=== PATIENT | female | born 1945 | race Caucasian/White ===

== ENCOUNTER 2017-03-09 17:29 | Emergency (ER) | payer MEDICARE ==
[2017-03-09 17:33] VITALS: BP 183/87; PULSE 70; RESP 20; TEMP 97.5
[2017-03-09] MEDS ORDERED: DIPH,PERTUS(ACELL)TETVAC-LF 0.5 ML VIAL IM ONE (18:12)
--- NOTE | 2017-03-09 18:54 | ED ---
Wound/Laceration HPI - General Chief Complaint: Wound/Laceration Stated Complaint: Laceration Time Seen by Provider: 03/09/17 17:58 Source: patient, RN notes reviewed Mode of arrival: wheelchair Limitations: no limitations - History of Present Illness Initial Comments: 71-year-old male presents emergency Department chief complaint of left forearm laceration. Patient states that she hit it on a cabinet today. Patient does not recall her last tetanus. Patient denies any pain she's noticed that it was opened more than normal so she thought that she should be evaluated.Patient denies any recent fever, chills, shortness of breath, chest pain, back pain, abdominal pain, nausea vomiting, numbness or tingling, dysuria or hematuria, constipation or diarrhea, headaches or visual changes, or any other current symptoms. - Related Data Allergies Allergy/AdvReac Type Severity Reaction Status Date / Time codeine Allergy Unknown Verified 03/09/17 17:33 Penicillins Allergy Unknown Verified 03/09/17 17:33 Review of Systems ROS Statement: Those systems with pertinent positive or pertinent negative responses have been documented in the HPI. ROS Other: All systems not noted in ROS Statement are negative. Past Medical History Past Medical History: Chest Pain / Angina, Hypertension History of Any Multi-Drug Resistant Organisms: None Reported Past Surgical History: Heart Catheterization Past Psychological History: No Psychological Hx Reported Smoking Status: Never smoker Past Alcohol Use History: None Reported Past Drug Use History: None Reported General Exam - General Exam Comments Initial Comments: General: The patient is awake and alert, in no distress, and does not appear acutely ill. Neck: The neck is supple, there is no tenderness. Cardiovascular: There is a regular rate and rhythm. No murmur, rub or gallop is appreciated. Respiratory: Lungs are clear to auscultation, respirations are non-labored, breath sounds are equal. No wheezes, stridor, rales, or rhonchi. Musculoskeletal: Sensation to have a 2+ pulses. Left upper joint. Full range of motion of the left elbow and the left wrist. Patient does appear to have 3 cm laceration across the left forearm. Patient has no bony tenderness. Neurological: CN II-XII intact, There are no obvious motor or sensory deficits. Coordination appears grossly intact. Speech is normal. Skin: Skin is warm and dry and no rashes or lesions are noted. Psychiatric: Normal mood and affect. Limitations: no limitations Course Vital Signs 03/09/17 17:31 Temperature 97.5 F L Pulse Rate 70 Respiratory 20 Rate Blood Pressure 183/87 O2 Sat by Pulse 98 Oximetry Procedures - Procedures Initial comment: The skin was anesthetized with 1% lidocaine. The laceration was then cleansed with Betadine and irrigated with normal saline. The wound was inspected, and there was no evidence of injury to deep structures. No foreign body was noted in the wound. A total of 5 skin sutures were placed utilizing 5-0 nylon to a 3 cm left forearm laceration. Medical Decision Making - Medical Decision Making 71-year-old female presents to emergency room chief complaint of left forearm laceration. Patient was offered an x-ray which she refused. This and patient went suture care. We discussed care follow-up and return parameters. We discussed all the patient's family's questions. He stated they understood the plan. This and will be discharged home. Disposition Clinical Impression: Laceration of left forearm Disposition: HOME SELF-CARE Condition: Stable Instructions: Laceration (ED) Additional Instructions: Please use medication as discussed. Please follow up with family doctor if symptoms have not improved over the next two days. Please return to the emergency room if your symptoms increase or worsen or for any other concerns. Please return to the emergency room in 8-10 days to have sutures removed. Please leave wound covered for the first 24-48 hours and then leave open to air after that time. Please use clean soap and water to clean the suture area to prevent scabbing over the top of your sutures. Please watch for any signs of infection which may include but not limited to increased pain, swelling, redness , fever or chills. Please return to the emergency room if any signs of infection do occur. Please return to the emergency room for any other concerns or complications. Referrals: None,Stated [Primary Care Provider] - 1-2 days Simon Palm MD [STAFF PHYSICIAN] - 1-2 days Time of Disposition: 18:54
== END 2017-03-09 19:16 | disposition home or self-care (01) ==
LOC: EC 17:29
DX: S51.812A Laceration without foreign body of left forearm, initial encounter (principal); W20.8XXA Other cause of strike by thrown, projected or falling object, initial encounter; Y92.009 Unspecified place in unspecified non-institutional (private) residence as the place of occurrence of the external cause; Z23 Encounter for immunization; Z88.0 Allergy status to penicillin; Z88.5 Allergy status to narcotic agent
CPT/HCPCS: 12002; 90471; 90715; 99282

== ENCOUNTER 2017-05-18 17:38 | Emergency (ER) | payer MEDICARE ==
[2017-05-18 18:04] VITALS: BP 141/66; PULSE 63; RESP 18; TEMP 98.1
--- NOTE | 2017-05-18 18:26 | XR ---
EXAMINATION TYPE: XR ankle complete RT DATE OF EXAM: 05/18/2017 CLINICAL HISTORY: Right ankle pain and swelling after twisting injury today. TECHNIQUE: Frontal, lateral and oblique images of the right ankle are obtained. COMPARISON: None. FINDINGS: There is mild diffuse subcutaneous edema with slightly more prominent focal swelling over t he lateral malleolus. There are tiny ossific fragments from lateral and medial malleoli consistent wi th age-indeterminate avulsion fractures. Ankle mortise symmetry is preserved. IMPRESSION: There are age indeterminant avulsion type fractures from the medial and lateral malleolu s .
--- NOTE | 2017-05-18 18:47 | ED ---
General Adult HPI - General Chief complaint: Extremity Injury, Lower Stated complaint: fall Time Seen by Provider: 05/18/17 18:30 Source: patient, RN notes reviewed Mode of arrival: ambulatory Limitations: no limitations - History of Present Illness Initial comments: Patient 71-year-old female who presents emergency room today with a chief complaint of injury to the right ankle that occurred earlier today. She does admit that she rolled her right ankle earlier this morning. Does admit that she 's had increased pain swelling to the area. Patient denies any other complaints or associated symptoms. Patient denies any recent fever, chills, shortness of breath, chest pain, back pain, abdominal pain, nausea or vomiting, numbness or tingling, dysuria or hematuria, constipation or diarrhea, headaches or visual changes, or any other complaints. - Related Data Home Medications Medication Instructions Recorded Confirmed No Known Home Medications [No 05/18/17 05/18/17 Known Home Medications] Allergies Allergy/AdvReac Type Severity Reaction Status Date / Time codeine Allergy Unknown Verified 05/18/17 18:38 Penicillins Allergy Unknown Verified 05/18/17 18:38 Review of Systems ROS Statement: Those systems with pertinent positive or pertinent negative responses have been documented in the HPI. ROS Other: All systems not noted in ROS Statement are negative. Past Medical History Past Medical History: Chest Pain / Angina, Hyperlipidemia, Hypertension History of Any Multi-Drug Resistant Organisms: None Reported Past Surgical History: Cholecystectomy, Heart Catheterization, Hysterectomy Additional Past Surgical History / Comment(s): bladder suspension Past Psychological History: No Psychological Hx Reported Smoking Status: Never smoker Past Alcohol Use History: None Reported Past Drug Use History: None Reported General Exam - General Exam Comments Initial Comments: General: The patient is awake and alert, in no distress, and does not appear acutely ill. Neck: The neck is supple, there is no tenderness or JVD. Cardiovascular: There is a regular rate and rhythm. No murmur, rub or gallop is appreciated. Respiratory: Lungs are clear to auscultation, respirations are non-labored, breath sounds are equal. No wheezes, stridor, rales, or rhonchi. Musculoskeletal: She does have moderate swelling to the right ankle. Shows good range of motion both plantar and dorsiflexion. Sensation is intact pulses equal bilaterally 2+. Mild tenderness over the lateral malleolus with mild tenderness over the medial malleolus. No tenderness down to the right foot. Neurological: A&O x 3. CN II-XII intact, There are no obvious motor or sensory deficits. Coordination appears grossly intact. Speech is normal. Skin: Skin is warm and dry and no rashes or lesions are noted. Psychiatric: Normal mood and affect. Limitations: no limitations Course Vital Signs 05/18/17 18:02 Temperature 98.1 F Pulse Rate 63 Respiratory 18 Rate Blood Pressure 141/66 O2 Sat by Pulse 97 Oximetry Medical Decision Making - Medical Decision Making Case discussed in detail with attending physician Dr. Brownlee. X-ray show 2 indeterminate age fractures of both the lateral and medial sides. Patient been placed in Jack wrap as it is her right foot has no one to pick her up to drive. She's been advised follow-up with orthopedics. She is advised to return to emergency room if any symptoms increase or worsen or for any other concerns. Disposition Clinical Impression: Ankle sprain Disposition: HOME SELF-CARE Condition: Good Instructions: Ankle Sprain (ED) Additional Instructions: Please use Jack wrap on up and moving around. Please do not sleep. Please elevate affected area at least 4 times daily for 20 minutes at a time. Please follow-up with orthopedic doctor over the next 2 days. Please return to emergency room for any other concerns. Referrals: None,Stated [Primary Care Provider] - 1-2 days Tunde Schmidt MD [Medical Doctor] - 1-2 days Time of Disposition: 18:46
== END 2017-05-18 19:00 | disposition home or self-care (01) ==
LOC: EC 17:38
DX: S93.401A Sprain of unspecified ligament of right ankle, initial encounter (principal); Z88.0 Allergy status to penicillin; Z88.5 Allergy status to narcotic agent; X50.1XXA Overexertion from prolonged static or awkward postures, initial encounter
CPT/HCPCS: 99283

== ENCOUNTER 2019-09-06 16:05 | Inpatient (IN) | payer MEDICARE, OTHER ==
[2019-09-06] MEDS ORDERED: SODIUM CHLORIDE 0.9% 1,000 ML IV STA (16:34)
[2019-09-06] MEDS ORDERED: METOCLOPRAMIDE 5 MG/ML 2 ML VIAL IVP STA (16:34)
[2019-09-06] MEDS ORDERED: MORPHINE SULFATE 4 MG/ML SYRINGE IV STA (16:35)
--- NOTE | 2019-09-06 16:47 | ED ---
General Adult HPI - General Chief complaint: Headache Stated complaint: Headache Time Seen by Provider: 09/06/19 16:18 Source: patient, RN notes reviewed Mode of arrival: ambulatory Limitations: no limitations - History of Present Illness Initial comments: Patient is a pleasant 73-year-old female presenting to the emergency Department with complaints of headache. Onset of symptoms was a couple of hours ago. Headache did progress over a few minutes and became severe. Headache is frontal. No history of chronic headaches. No photophobia. Patient has some mild nausea. Patient also complains of some Bosher in her chest. No radiation. Patient does feel slightly short of breath. Patient states she may have been a little bit sweaty. Patient states discomfort in the head is significantly worse than the chest discomfort. No isolated area of weakness. No speech or memory problems. - Related Data Home Medications Medication Instructions Recorded Confirmed No Known Home Medications 05/18/17 09/06/19 Allergies Allergy/AdvReac Type Severity Reaction Status Date / Time codeine Allergy Unknown Verified 09/06/19 16:50 Penicillins Allergy Unknown Verified 09/06/19 16:50 Review of Systems ROS Statement: Those systems with pertinent positive or pertinent negative responses have been documented in the HPI. ROS Other: All systems not noted in ROS Statement are negative. Constitutional: Denies: fever Eyes: Denies: eye pain ENT: Denies: ear pain Respiratory: Reports: as per HPI Cardiovascular: Reports: as per HPI, chest pain Endocrine: Denies: fatigue Gastrointestinal: Reports: nausea. Denies: abdominal pain, vomiting Genitourinary: Denies: dysuria Musculoskeletal: Denies: back pain Skin: Denies: rash Neurological: Reports: headache. Denies: weakness, numbness, paresthesias, confusion Past Medical History Past Medical History: Chest Pain / Angina, Hyperlipidemia, Hypertension History of Any Multi-Drug Resistant Organisms: None Reported Past Surgical History: Cholecystectomy, Heart Catheterization, Hysterectomy Additional Past Surgical History / Comment(s): bladder suspension Past Psychological History: No Psychological Hx Reported Smoking Status: Never smoker Past Alcohol Use History: None Reported Past Drug Use History: None Reported General Exam Limitations: no limitations General appearance: alert, in no apparent distress Head exam: Present: normocephalic, other Eye exam: Present: normal appearance, PERRL, EOMI ENT exam: Present: normal oropharynx Neck exam: Present: normal inspection. Absent: tenderness, meningismus Respiratory exam: Present: normal lung sounds bilaterally Cardiovascular Exam: Present: regular rate, normal rhythm GI/Abdominal exam: Present: soft. Absent: tenderness Extremities exam: Present: normal inspection Neurological exam: Present: alert, oriented X3, CN II-XII intact. Absent: motor sensory deficit Expanded Neurological exam: Present: protecting the airway Patient oriented to: Present: person, place, time Speech: Present: fluid speech Cranial nerves: EOM's Intact: Normal, Facial Sensation: Normal Sensory exam: Upper Extremity Light Touch: Normal, Lower Extremity Light Touch: Normal Motor strength exam: RUE: 5, LUE: 5, RLE: 5, LLE: 5 Eye Response: (4) open spontaneously Motor Response: (6) obeys commands Verbal Response: (5) oriented Psychiatric exam: Present: normal affect, normal mood Skin exam: Present: normal color Course Vital Signs 09/06/19 09/06/19 09/06/19 16:14 17:14 17:16 Temperature 97.3 F L Pulse Rate 67 76 71 Respiratory 18 24 22 Rate Blood Pressure 148/89 166/77 O2 Sat by Pulse 100 100 98 Oximetry 09/06/19 17:47 Temperature Pulse Rate 75 Respiratory 22 Rate Blood Pressure 188/96 O2 Sat by Pulse 99 Oximetry EKG Findings - EKG Comments: EKG Findings:: Sinus rhythm at 75. WV 138. QRS 80. QT 396. QTc 442. Normal axis. LVH criteria. Nonspecific ST-T. Medical Decision Making - Medical Decision Making Patient reevaluated and resting comfortably in bed. Patient states she is feeling better. Nausea has improved however not resolved. Headache has improved and is tolerable/only medium at this time. Patient does not want any f urther medication for her head at this time. Patient states chest discomfort has resolved. Nursing did notice that patient appeared to be slightly confused. Patient did have difficulty naming such objects such as a pen. When reevaluated patient is unable to identify a pen at this time. No weakness. It is felt the patient can benefit from further evaluation including admission to the hospital with internal medicine evaluation as well as neurology evaluation. TIA cannot be completely ruled out at this time. Case was discussed in detail with Dr. Palm, who will admit covering for hospital call. - Lab Data Result diagrams: 09/06/19 17:09 09/06/19 17:09 Lab Results 09/06/19 09/06/19 09/06/19 Range/Units 17:09 17:09 17:09 WBC 10.1 (3.8-10.6) k/uL RBC 4.49 (3.80-5.40) m/uL Hgb 13.4 (11.4-16.0) gm/dL Hct 40.6 (34.0-46.0) % MCV 90.3 (80.0-100.0) fL MCH 29.8 (25.0-35.0) pg MCHC 33.0 (31.0-37.0) g/dL RDW 13.4 (11.5-15.5) % Plt Count 353 (150-450) k/uL Neutrophils % (Manual) 46 % Lymphocytes % (Manual) 38 % Monocytes % (Manual) 10 % Eosinophils % (Manual) 6 % Neutrophils # (Manual) 4.65 (1.3-7.7) k/uL Lymphocytes # (Manual) 3.84 (1.0-4.8) k/uL Monocytes # (Manual) 1.01 H (0-1.0) k/uL Eosinophils # (Manual) 0.61 (0-0.7) k/uL Nucleated RBCs 0 (0-0) /100 WBC Manual Slide Review Performed PT 9.7 (9.0-12.0) sec INR 0.9 (<1.2) APTT 23.8 (22.0-30.0) sec Sodium 135 L (137-145) mmol/L Potassium 3.9 (3.5-5.1) mmol/L Chloride 101 (98-107) mmol/L Carbon Dioxide 24 (22-30) mmol/L Anion Gap 10 mmol/L BUN 20 H (7-17) mg/dL Creatinine 1.17 H (0.52-1.04) mg/dL Est GFR (CKD-EPI)AfAm 54 (>60 ml/min/1.73 sqM) Est GFR (CKD-EPI)NonAf 47 (>60 ml/min/1.73 sqM) Glucose 116 H (74-99) mg/dL Calcium 9.8 (8.4-10.2) mg/dL Magnesium 1.8 (1.6-2.3) mg/dL Total Bilirubin 0.6 (0.2-1.3) mg/dL AST 32 (14-36) U/L ALT 33 (9-52) U/L Alkaline Phosphatase 113 (38-126) U/L Creatine Kinase 67 (30-135) U/L Troponin I (0.000-0.034) ng/mL Total Protein 7.6 (6.3-8.2) g/dL Albumin 4.3 (3.5-5.0) g/dL 09/06/19 Range/Units 17:09 WBC (3.8-10.6) k/uL RBC (3.80-5.40) m/uL Hgb (11.4-16.0) gm/dL Hct (34.0-46.0) % MCV (80.0-100.0) fL MCH (25.0-35.0) pg MCHC (31.0-37.0) g/dL RDW (11.5-15.5) % Plt Count (150-450) k/uL Neutrophils % (Manual) % Lymphocytes % (Manual) % Monocytes % (Manual) % Eosinophils % (Manual) % Neutrophils # (Manual) (1.3-7.7) k/uL Lymphocytes # (Manual) (1.0-4.8) k/uL Monocytes # (Manual) (0-1.0) k/uL Eosinophils # (Manual) (0-0.7) k/uL Nucleated RBCs (0-0) /100 WBC Manual Slide Review PT (9.0-12.0) sec INR (<1.2) APTT (22.0-30.0) sec Sodium (137-145) mmol/L Potassium (3.5-5.1) mmol/L Chloride (98-107) mmol/L Carbon Dioxide (22-30) mmol/L Anion Gap mmol/L BUN (7-17) mg/dL Creatinine (0.52-1.04) mg/dL Est GFR (CKD-EPI)AfAm (>60 ml/min/1.73 sqM) Est GFR (CKD-EPI)NonAf (>60 ml/min/1.73 sqM) Glucose (74-99) mg/dL Calcium (8.4-10.2) mg/dL Magnesium (1.6-2.3) mg/dL Total Bilirubin (0.2-1.3) mg/dL AST (14-36) U/L ALT (9-52) U/L Alkaline Phosphatase (38-126) U/L Creatine Kinase (30-135) U/L Troponin I <0.012 (0.000-0.034) ng/mL Total Protein (6.3-8.2) g/dL Albumin (3.5-5.0) g/dL - Radiology Data Radiology results: report reviewed (Computed tomography scan of the head as well as CTA shows no acute process), image reviewed (Chest x-ray shows no acute cardiopulmonary process. Heart size appears somewhat larger. Atheromatous aorta.) Disposition Clinical Impression: Headache, Chest pain Disposition: ADMITTED IP TO THIS HOSP Is patient prescribed a controlled substance at d/c from ED?: No Referrals: None,Stated [Primary Care Provider] - 1-2 days Decision Time: 18:56
--- NOTE | 2019-09-06 17:16 | XR ---
EXAMINATION TYPE: XR chest 2V DATE OF EXAM: 09/06/2019 COMPARISON: 02/11/2011 HISTORY: Severe headache TECHNIQUE: Frontal and lateral views of the chest are obtained. FINDINGS: There is no heart failure nor confluent pneumonic infiltrate. There are chest leads. Thora cic aorta is atheromatous. Costophrenic angles are clear. IMPRESSION: No active cardiopulmonary disease. Atheromatous aorta. Heart appears increased in size c ompared to old exam.
[2019-09-06 17:44] LABS: Albumin 4.3 g/dL (3.5-5.0); Calcium 9.8 mg/dL (8.4-10.2); Magnesium 1.8 mg/dL (1.6-2.3); Potassium 3.9 mmol/L (3.5-5.1); Total Bilirubin 0.6 mg/dL (0.2-1.3); Total Protein 7.6 g/dL (6.3-8.2)
[2019-09-06 17:53] LABS: INR 0.9 (<1.2); Partial Thromboplastin Time 23.8 sec (22.0-30.0); Prothrombin Time 9.7 sec (9.0-12.0)
[2019-09-06 18:01] LABS: HCT 40.6 % (34.0-46.0); HGB 13.4 gm/dL (11.4-16.0); MCH 29.8 pg (25.0-35.0); MCV 90.3 fL (80.0-100.0); Mean Platelet Volume 6.8; Platelet Count 353 k/uL (150-450); RBC 4.49 m/uL (3.80-5.40); RDW 13.4 % (11.5-15.5); WBC 10.1 k/uL (3.8-10.6)
--- NOTE | 2019-09-06 18:02 | CT ---
EXAMINATION TYPE: CT brain wo con DATE OF EXAM: 09/06/2019 COMPARISON: None HISTORY: LOOMIS CT DLP: 1058.8 mGycm Automated exposure control for dose reduction was used. FINDINGS: Ventricles and sulci appear normal. There is no mass effect nor midline shift. There is no sign of in tracranial hemorrhage. Calvarium is intact. IMPRESSION: HEAD CT SCAN IS NORMAL FOR AGE.
[2019-09-06 18:16] LABS: Eosinophils # (M) 0.61 k/uL (0-0.7); Lymphocytes # (M) 3.84 k/uL (1.0-4.8); Monocytes # (M) 1.01 k/uL (0-1.0); Neutrophils % (M) 46 %; Nucleated Red Blood Cells 0 /100 WBC (0-0); Total Cells Counted 100
[2019-09-06] MEDS ORDERED: ONDANSETRON 4 MG/2 ML VIAL IVP STA (18:24)
--- NOTE | 2019-09-06 18:27 | CT ---
EXAMINATION TYPE: CT angio head neck DATE OF EXAM: 09/06/2019 HISTORY: LOOMIS COMPARISON: None CT DLP: 432 mGycm. Automated Exposure Control for Dose Reduction was Utilized. TECHNIQUE: CTA scan of the neck is performed with IV Contrast, patient injected with 65 mL of Isovue 370, axial images are obtained, coronal and sagittal reformatted images are reviewed. Three-D recons tructed images are created on an independent workstation and reviewed. FINDINGS: There is normal branching pattern of the great vessels on the aortic arch. There is bilateral arteria l flow in the subclavian arteries. There is arterial flow in the common internal and external carotid arteries bilaterally. There is bilateral arterial flow in the vertebral arteries which are fairly sy mmetric. There is arterial flow in the vertebrobasilar artery system. There is minimal plaque at the carotid artery bifurcations. Narrowing is less than 20% on the left si de and close to 0% on the right side. There is arterial flow in the anterior middle and posterior cerebral arteries. I see no evidence of h emodynamic stenosis. There is normal contrast opacification of the venous sinuses. There is no mass e ffect. There is no sign of aneurysm or neovascularity. There is large right posterior communicating a rtery. IMPRESSION: No significant abnormality.
[2019-09-06] MEDS ORDERED: ASPIRIN 325 MG TAB PO STA (19:01)
[2019-09-06] MEDS: SODIUM CHLORIDE 0.9% 1,000 ML IV SCH (19:15)
[2019-09-06] MEDS: ONDANSETRON 4 MG/2 ML VIAL IVP SCH (20:06)
[2019-09-06 21:09] VITALS: BMI 25.7
[2019-09-07 05:41] LABS: Cholesterol 176 mg/dL (<200); HDL Cholesterol 65 mg/dL (40-60); LDL Cholesterol,Calculated 99 mg/dL (0-99); Triglycerides 61 mg/dL (<150)
[2019-09-07] MEDS: SODIUM CHLORIDE 0.9% 1,000 ML IV SCH (06:22)
[2019-09-07] MEDS: ONDANSETRON 4 MG/2 ML VIAL IVP SCH ×2 (08:29→08:30)
[2019-09-07] MEDS ORDERED: ASPIRIN 325 MG TAB PO SCH (09:00)
[2019-09-07 09:40] VITALS: BP 184/80; PULSE 62; RESP 16; TEMP 97.5
--- NOTE | 2019-09-07 19:33 | HP ---
HISTORY AND PHYSICAL CHIEF COMPLAINT: Frontal headache and chest pain. HISTORY OF PRESENT ILLNESS: This is the first admission for this 73-year-old G3, P3, A0 white female. She developed a severe frontal headache on the day of admission. She had no fever, chills, epistaxis, etc. Her vision does seem to be slightly blurry. She has been healthy otherwise. She came to the emergency room where she was evaluated and it was decided that she should be admitted. REVIEW OF SYSTEMS: She has had no other symptoms other than the headache with the slight blurring of vision. She has had no difficulty with the hearing and she has had no fever, chills, cough, shortness of breath, hypertension, murmurs, rheumatic fever, orthopnea, PND, abdominal pain, nausea, vomiting, hematemesis, melena, hematochezia, colitis, hematuria, frequency, urgency, incontinence, renal failure, diabetes, etc. Past medical history, family history and personal and social history are all otherwise unremarkable and noncontributory. ALLERGIES: PENICILLIN, CODEINE. She is on no medication. She had a fracture of the right hip and a cholecystectomy. She does not drink or smoke. She has been told in the past that she has hypertension, but does not take anything. PHYSICAL EXAMINATION: Blood pressure 166/77 with a pulse of 80, respirations of 14, she is afebrile. In general, she appeared to be well developed, well nourished, no acute distress. Skin color is normal. Skin is warm and dry. Lymph nodes are not enlarged. Head, ears, eyes, nose, mouth, and throat were normal. Neck veins are not distended. Thyroid is not enlarged. Chest is clear. Cardiac exam is normal. Abdomen is soft, nontender. Extremities are normal. Neurologically she is intact and she has no nuchal rigidity. She is admitted to the hospital diagnosis: Headache with blurred vision. PLAN: 1. Bed rest. 2. IV fluids. 3. Monitor her neurologic symptoms, signs as well as her headache symptoms and blood pressure. MMODL / IJN: [id number] /
--- NOTE | 2019-09-07 20:41 | DS ---
DISCHARGE SUMMARY CHIEF COMPLAINT: Headache. HISTORY OF PRESENT ILLNESS AND PHYSICAL EXAM: Details of this lady's history and physical can be found in the initial workup. LABORATORY STUDIES: While she was in hospital she had laboratory studies, details of which can be found in the laboratory section of her chart. COURSE IN HOSPITAL: After admission she was placed on bedrest and started on intravenous fluids and monitored for any neurologic difficulties or change in her headache. She had none. The headache disappeared. She is doing well. It was felt that she could go home. She will go home on her usual diet, activity, and no medications and will follow up in the office in a few days. FINAL DIAGNOSES: 1. Frontal headache, etiology unknown. 2. Blurred vision. 3. History of hypertension. OPERATIONS: None. CONSULTATION: None. She is improved. MMODL / IJN: [id number] /
--- NOTE | 2019-09-08 09:00 | ECHOF ---
Referral Reason:Thrombus MEASUREMENTS -------- HEIGHT: 162.6 cm WEIGHT: 80.3 kg BP: 148/68 RVIDd: 3.7 cm (< 3.3) IVSd: 1.1 cm (0.6 - 1.1) LVIDd: 4.5 cm (3.9 - 5.3) LVPWd: 1.6 cm (0.6 - 1.1) IVSs: 1.4 cm LVIDs: 4.1 cm LVPWs: 1.5 cm LA Diam: 3.7 cm (2.7 - 3.8) LAESV Index (A-L): 44.44 ml/m Ao Diam: 2.8 cm (2.0 - 3.7) AV Cusp: 1.9 cm (1.5 - 2.6) LA Diam: 4.5 cm (2.7 - 3.8) MV EXCURSION: 17.701 mm (> 18.000) MV EF SLOPE: 85 mm/s (70 - 150) EPSS: 0.5 cm MV E Oracio: 0.67 m/s MV DecT: 161 ms MV A Oracio: 0.82 m/s MV E/A Ratio: 0.82 RAP: 5.00 mmHg RVSP: 37.98 mmHg FINDINGS -------- Sinus rhythm. This was a technically good study. LV size, wall thickness and systolic function are normal, with an EF greater than 55%. The left chelsie tricular size is normal. The right ventricle is normal in size. The left atrium is markedly dilated. LA is severely dilated >40 ml/m2 The right atrial size is normal. There is mild aortic valve sclerosis. There is no evidence of aortic regurgitation. Mild mitral annular calcification present. Mild mitral regurgitation is present. Mild tricuspid regurgitation present. Right ventricular systolic pressure is normal at < 35 mmHg. There is no evidence of pulmonary hypertension. There is no pulmonic regurgitation present. The aortic root size is normal. There is no pericardial effusion. CONCLUSIONS -------- 1. Sinus rhythm. 2. This was a technically good study. 3. LV size, wall thickness and systolic function are normal, with an EF greater than 55%. 4. The left ventricular size is normal. 5. The right ventricle is normal in size. 6. The left atrium is markedly dilated. 7. LA is severely dilated >40 ml/m2 8. The right atrial size is normal. 9. There is mild aortic valve sclerosis. 10. Mild mitral annular calcification present. 11. Mild mitral regurgitation is present. 12. Mild tricuspid regurgitation present. 13. Right ventricular systolic pressure is normal at < 35 mmHg. 14. There is no evidence of pulmonary hypertension. 15. There is no pulmonic regurgitation present. 16. The aortic root size is normal. 17. There is no pericardial effusion. TIMBER SURVEYOR: Arabella Roe RDCS
== END 2019-09-07 12:38 | disposition home or self-care (01) | DRG 103 ==
LOC: EC 16:05 → OBSVTOIN 19:01 → UNDOADMOB 19:01 → 3SCARD 19:01 → UNDODISOB 09-07 12:38
PROVIDERS: ADMIT Family Medicine; ATTEND Family Medicine
DX: R51 Headache (principal); E78.5 Hyperlipidemia, unspecified; R07.89 Other chest pain; I10 Essential (primary) hypertension; H53.8 Other visual disturbances; Z88.0 Allergy status to penicillin; Z88.5 Allergy status to narcotic agent; Z90.49 Acquired absence of other specified parts of digestive tract; Z98.890 Other specified postprocedural states; Z90.710 Acquired absence of both cervix and uterus
CPT/HCPCS: 36415; 70450; 70496; 70498; 71046; 80053; 80061; 82550; 83735; 84484; 85025; 85610; 85730; 93005; 93306; 96361; 96374; 96375; 96376; 99285

== ENCOUNTER 2021-02-21 15:57 | Emergency (ER) | payer MEDICARE, OTHER ==
[2021-02-21 16:07] VITALS: BP 131/86; TEMP 98.2
--- NOTE | 2021-02-21 17:38 | ED ---
General Adult HPI - General Chief complaint: Shortness of Breath Stated complaint: Covid Symptoms Time Seen by Provider: 02/21/21 17:16 Source: EMS Mode of arrival: EMS Limitations: no limitations - History of Present Illness Initial comments: Patient is a 75-year-old female that presents to the emergency Department complaining of cold-like symptoms since 02/16/2021. She notes that she has coughed sinus congestion and drainage. She was lying in bed in no apparent distress or pain during the exam and interview. Stated that she was having a cough since last Saturday. He denied any chest pain headache nausea vomiting diarrhea constipation fever fatigue chills. - Related Data Home Medications Medication Instructions Recorded Confirmed No Known Home Medications 05/18/17 09/06/19 Allergies Allergy/AdvReac Type Severity Reaction Status Date / Time codeine Allergy Unknown Verified 02/21/21 16:07 Penicillins Allergy Unknown Verified 02/21/21 16:07 Review of Systems ROS Statement: Those systems with pertinent positive or pertinent negative responses have been documented in the HPI. ROS Other: All systems not noted in ROS Statement are negative. Past Medical History Past Medical History: Chest Pain / Angina, Hyperlipidemia, Hypertension Additional Past Medical History / Comment(s): covid 02/16/21 History of Any Multi-Drug Resistant Organisms: None Reported Past Surgical History: Cholecystectomy, Heart Catheterization, Hysterectomy Additional Past Surgical History / Comment(s): bladder suspension Past Psychological History: No Psychological Hx Reported Smoking Status: Never smoker Past Alcohol Use History: None Reported Past Drug Use History: None Reported General Exam Limitations: no limitations General appearance: alert, in no apparent distress Head exam: Present: atraumatic, normocephalic, normal inspection Eye exam: Present: normal appearance, PERRL, EOMI. Absent: scleral icterus, conjunctival injection, periorbital swelling Neck exam: Present: normal inspection. Absent: tenderness, meningismus, lym phadenopathy Respiratory exam: Present: normal lung sounds bilaterally, other (Patient was wearing nasal cannula that was not bloody and anything, she is saturating at 98% on room air.). Absent: respiratory distress, wheezes, rales, rhonchi, stridor Cardiovascular Exam: Present: regular rate, normal rhythm, normal heart sounds. Absent: systolic murmur, diastolic murmur, rubs, gallop, clicks GI/Abdominal exam: Present: soft, normal bowel sounds. Absent: distended, tenderness, guarding, rebound, rigid Extremities exam: Present: normal inspection, full ROM, normal capillary refill. Absent: tenderness, pedal edema, joint swelling, calf tenderness Neurological exam: Present: alert, oriented X3, CN II-XII intact Psychiatric exam: Present: normal affect, normal mood Skin exam: Present: warm, dry, intact, normal color. Absent: rash Course Vital Signs 02/21/21 02/21/21 16:04 19:53 Temperature 98.2 F Pulse Rate 77 90 Respiratory 24 18 Rate Blood Pressure 131/86 O2 Sat by Pulse 98 99 Oximetry Medical Decision Making - Medical Decision Making 75-year-old female complaining of Covid like symptoms since 02/16/2021. Chest x-ray ordered Covid test ordered, Covid-positive. Patient does meet criteria for monoclonal antibody therapy given her age. Patient agreed to undergo IV infusion therapy of monoclonal antibody. Case discussed with Dr. Dodd, patient can discharge home after IV infusion. - Lab Data Lab Results 02/21/21 Range/Units 17:55 Coronavirus (PCR) Detected A (Not Detectd) - Radiology Data Radiology results: report reviewed, image reviewed Chest x-ray: Low lung volumes. Silhouetting of the left hemidiaphragm and costophrenic angle may be due to overlapping soft tissue cardiac silhouette. Airspace disease and pleural effusion is not excluded. Disposition Clinical Impression: COVID-19 Disposition: HOME SELF-CARE Condition: Stable Instructions (If sedation given, give patient instructions): Coronavirus Disease 2019 (COVID-19) Additional Instructions: Please return to the Emergency Department if symptoms worsen or any other concerns. Follow-up with primary care after 10-14 days or quarantine per CDC guidelines from symptom onset. Continue to take [id number] anti-inflammatories for fever and muscle aches and pains control. Increase fluids and rest. Is patient prescribed a controlled substance at d/c from ED?: No Referrals: None,Stated [Primary Care Provider] - 1-2 days Time of Disposition: 20:12
--- NOTE | 2021-02-21 18:40 | XR ---
EXAMINATION TYPE: XR chest 1V portable DATE OF EXAM: 02/21/2021 CLINICAL HISTORY: covid. TECHNIQUE: Portable frontal view of the chest. COMPARISON: 10/03/2019 chest radiograph FINDINGS: Low lung volumes accentuates the cardiac silhouette. There is silhouetting of the left connor diaphragm barium left costophrenic angle no pneumothorax. Pulmonary vasculature normal. IMPRESSION: 1. Low lung volumes. 2. Silhouetting of the left hemidiaphragm and costophrenic angle may be due to overlapping soft tissu e and cardiac silhouette. Airspace disease and pleural effusion is not excluded.
[2021-02-21 19:54] VITALS: PULSE 90; RESP 18
[2021-02-21] MEDS ORDERED: SODIUM CHLORIDE 0.9% 50 ML IVPB ONE (20:00)
[2021-02-21] MEDS ORDERED: BAMLANIVIMAB (EUA) 700 MG, ETESEVIMAB (EUA) 1,400 MG in SODIUM CHLORIDE 0.9% 50 ML IVPB ONE (20:00)
== END 2021-02-21 21:15 | disposition home or self-care (01) ==
LOC: EC 15:57
DX: U07.1 COVID-19 (principal); I10 Essential (primary) hypertension; E78.5 Hyperlipidemia, unspecified; Z88.0 Allergy status to penicillin; Z88.5 Allergy status to narcotic agent
CPT/HCPCS: 87635; 71045; 99285; 96372; Q0245

== ENCOUNTER 2022-11-30 14:41 | Emergency (ER) | payer MEDICARE, OTHER ==
[2022-11-30 14:59] VITALS: TEMP 97.6
--- NOTE | 2022-11-30 15:19 | ED ---
General Adult HPI - General Chief complaint: Dizziness Stated complaint: Dizziness Time Seen by Provider: 11/30/22 15:14 Source: patient, EMS Mode of arrival: EMS Limitations: no limitations - History of Present Illness Initial comments: Patient presents to the ED by ambulance for evaluation with her friend at bedside. Patient states that she just laid down after walking her dog about an hour and a half ago when she suddenly became dizzy and nauseated. Patient states that it felt like things were "spinning". Patient states that her dizziness is worse with changes in position and when turning her head from side to side. Patient states that she has had similar dizziness episodes in the past. Patient also admits that she had a mild "burning" sensation in her chest earlier today. Patient denies having any chest pain or burning currently. Pat ient denies LOC/syncope, trauma or injury, fever or chills, headache, focal numbness/weakness/neuro deficit, visual changes, speech difficulty, neck/arm/jaw/back pain, pleuritic pain, dyspnea, cough or cold symptoms, palpitations, diaphoresis, vomiting or diarrhea, bloody or melanotic stool, dysuria or urinary symptoms, leg or calf swelling or pain, or any other symptoms or complaints. Patient states that she took a full dose aspirin prior to calling for an ambulance today. - Related Data Home Medications Medication Instructions Recorded Confirmed No Known Home Medications 05/18/17 09/06/19 Allergies Allergy/AdvReac Type Severity Reaction Status Date / Time codeine Allergy Unknown Verified 11/30/22 14:58 Penicillins Allergy Unknown Verified 11/30/22 14:58 Review of Systems ROS Statement: Those systems with pertinent positive or pertinent negative responses have been documented in the HPI. ROS Other: All systems not noted in ROS Statement are negative. Past Medical History Past Medical History: Chest Pain / Angina, Hyperlipidemia, Hypertension Additional Past Medical History / Comment(s): covid 02/16/21 History of Any Multi-Drug Resistant Organisms: None Reported Past Surgical History: Cholecystectomy, Heart Catheterization, Hysterectomy Additional Past Surgical History / Comment(s): bladder suspension Past Psychological History: No Psychological Hx Reported Smoking Status: Never smoker Past Alcohol Use History: None Reported Past Drug Use History: None Reported General Exam Limitations: no limitations General appearance: alert, in no apparent distress Head exam: Present: atraumatic, normocephalic Eye exam: Present: normal appearance, PERRL, EOMI. Absent: nystagmus ENT exam: Present: mucous membranes moist, TM's normal bilaterally Neck exam: Present: other (Trachea is in midline). Absent: tenderness, meningismus Respiratory exam: Present: normal lung sounds bilaterally. Absent: respiratory distress, wheezes, rales, rhonchi, stridor Cardiovascular Exam: Present: regular rate, normal rhythm, normal heart sounds, other (Normal radial pulses bilaterally) GI/Abdominal exam: Present: soft. Absent: distended, tenderness, guarding Extremities exam: Present: other (Negative Homans sign bilaterally). Absent: tenderness, pedal edema, calf tenderness Neurological exam: Present: alert, oriented X3, CN II-XII intact. Absent: motor sensory deficit Psychiatric exam: Present: normal affect, normal mood Skin exam: Present: warm, dry, intact, normal color Course Vital Signs 11/30/22 11/30/22 11/30/22 14:52 15:13 16:00 Temperature 97.6 F 97.6 F Pulse Rate 61 60 58 L Respiratory 18 18 Rate Blood Pressure 128/93 194/104 207/112 O2 Sat by Pulse 99 99 99 Oximetry 11/30/22 11/30/22 11/30/22 16:30 17:00 17:30 Temperature Pulse Rate 60 55 L 54 L Respiratory 18 22 18 Rate Blood Pressure 228/120 205/111 166/85 O2 Sat by Pulse 100 96 95 Oximetry 11/30/22 11/30/22 18:00 18:30 Temperature Pulse Rate 54 L 57 L Respiratory 18 20 Rate Blood Pressure 158/84 153/89 O2 Sat by Pulse 95 95 Oximetry - Reevaluation(s) Reevaluation #1: 11/30/22 19:16 Patient states that her dizziness/symptoms have now resolved, and she states that she wishes to go home. Patient's blood pressure readings have improved as well. Patient continues to have a normal/nonfocal neurological exam. Patient remains alert and breathing comfortably. Patient is aware of her test results, she feels comfortable being discharged home at this time. Patient was counseled about dizziness/vertigo, and she was clearly explained return and follow-up instructions. Patient was instructed to follow up closely with her primary care provider. Patient feels comfortable with this plan. EKG Findings - EKG Comments: EKG Findings:: ED physician interpretation: Normal sinus rhythm, no ectopy, ventricular rate of 65 bpm, normal TX and QRS intervals, normal QT interval, normal axis, no ST or T-wave abnormality Medical Decision Making - Medical Decision Making Was pt. sent in by a medical professional or institution ([facility], INSURANCE LEGAL ASSISTANT, urgent care, hospital, or [place] health care facility...) When possible be specific @ -[No] Did you speak to anyone other than the patient for history (EMS, parent, family, police, friend...)? What history was obtained from this source @ -[No] Did you review nursing and triage notes (agree or disagree)? Why? @ -[I reviewed and agree with nursing and triage notes] Were old charts reviewed (outside hosp., previous admission, EMS record, old E KG, old radiological studies, urgent care reports/EKG's, [place] health care facility records)? Report findings @ -[No old charts were reviewed] Differential Diagnosis (chest pain, altered mental status, abdominal pain women, abdominal pain men, vaginal bleeding, weakness, fever, dyspnea, syncope, headache, dizziness, GI bleed, back pain, seizure, CVA, palpatations, mental h ealth)? @ -Differential Dizziness: Benign paroxysmal positional Vertigo, Menieres disease, acoustic neuroma, vertebrobasilar insufficiency, cerebellar stroke, hypovolemic, arrhythmia, coronary artery syndrome, anemia, this is not meant to be an all-inclusive list EKG interpreted by me (3pts min.). @ -[As above] X-rays interpreted by me (1pt min.). @ -[Negative chest x-ray] CT interpreted by me (1pt min.). @ -No U/S interpreted by me (1pt. min.). @ -[None done] What testing was considered but not performed or refused? (CT, X-rays, U/S, labs)? Why? @ -[None] What meds were considered but not given or refused? Why? @ -[None] Did you discuss the management of the patient with other professionals (professionals i.e. [facility], INSURANCE LEGAL ASSISTANT, lab, RT, psych nurse, secondary social studies teacher, department helper, teacher, collections officer, pillowcase maker)? Give summary @ -[No] Was smoking cessation discussed for >3mins.? @ -[No] Was critical care preformed (if so, how long)? @ -[No] Were there social determinants of health that impacted care today? How? (Homelessness, low income, unemployed, alcoholism, drug addiction, transportation, low edu. Level, literacy, decrease access to med. care, assisted, rehab)? @ -[No] Was there de-escalation of care discussed even if they declined (Discuss DNR or withdrawal of care, Hospice)? DNR status @ -[No] What co-morbidities impacted this encounter? (DM, HTN, Smoking, COPD, CAD, Cancer, CVA, ARF, Chemo, Hep., AIDS, mental health diagnosis, sleep apnea, morbid obesity)? @ -Hypertension Was patient admitted / discharged? Hospital course, mention meds given and route, prescriptions, significant lab abnormalities, going to OR and other pertinent info. @ -Patient's symptoms improved with ED treatment. Patient had elevated blood pressure readings while in the ED, but she admitted to not taking her morning blood pressure meds today, so they were ordered and given in the ED with improvement in her blood pressure readings. Patient reports having "spinning" dizziness that is worse with changes in position and turning her head from [id number]-[id number]. I suspect that her dizziness may be secondary to positional vertigo. Patient's labs and imaging studies are fairly unremarkable. Patient has a normal/nonfocal neurological exam. I do not suspect an emergent medical condition at this time. Will discharge patient home at this time. Patient feels comfortable being discharged home at this time. Patient states that she has a follow-up appointment scheduled to see her primary care provider. Undiagnosed new problem with uncertain prognosis? @ -[No] Drug Therapy requiring intensive monitoring for toxicity (Heparin, Nitro, Insulin, Cardizem)? @ -[No] Were any procedures done? @ -[No] Diagnosis/symptom? @ -Dizziness Acute, or Chronic, or Acute on Chronic? @ -Acute Uncomplicated (without systemic symptoms) or Complicated (systemic symptoms)? @ -Uncomplicated Side effects of treatment? @ -[No] Exacerbation, Progression, or Severe Exacerbation? @ -[No] Poses a threat to life or bodily function? How? (Chest pain, USA, DC, pneumonia, PE, COPD, DKA, ARF, appy, cholecystitis, CVA, Diverticulitis, Homicidal, Suicidal, threat to staff... and all critical care pts) @ -[No] - Lab Data Result diagrams: 11/30/22 15:38 11/30/22 15:38 Lab Results 11/30/22 11/30/22 11/30/22 Range/Units 15:38 15:38 15:38 WBC 7.8 (3.8-10.6) k/uL RBC 4.19 (3.80-5.40) m/uL Hgb 12.5 (11.4-16.0) gm/dL Hct 38.2 (34.0-46.0) % MCV 91.1 (80.0-100.0) fL MCH 29.8 (25.0-35.0) pg MCHC 32.7 (31.0-37.0) g/dL RDW 13.1 (11.5-15.5) % Plt Count 292 (150-450) k/uL MPV 8.2 Neutrophils % 48 % Lymphocytes % 35 % Monocytes % 9 % Eosinophils % 4 % Basophils % 1 % Neutrophils # 3.7 (1.3-7.7) k/uL Lymphocytes # 2.7 (1.0-4.8) k/uL Monocytes # 0.7 (0-1.0) k/uL Eosinophils # 0.3 (0-0.7) k/uL Basophils # 0.0 (0-0.2) k/uL PT 9.7 (9.0-12.0) sec INR 0.9 (<1.2) APTT 22.1 (22.0-30.0) sec Sodium 136 L (137-145) mmol/L Potassium 4.7 (3.5-5.1) mmol/L Chloride 103 (98-107) mmol/L Carbon Dioxide 25 (22-30) mmol/L Anion Gap 8 mmol/L BUN 32 H (7-17) mg/dL Creatinine 1.25 H (0.52-1.04) mg/dL Est GFR (CKD-EPI)AfAm 49 (>60 ml/min/1.73 sqM) Est GFR (CKD-EPI)NonAf 43 (>60 ml/min/1.73 sqM) Glucose 145 H (74-99) mg/dL Calcium 9.5 (8.4-10.2) mg/dL Total Bilirubin 0.6 (0.2-1.3) mg/dL AST 25 (14-36) U/L ALT 23 (4-34) U/L Alkaline Phosphatase 94 (38-126) U/L Troponin I (0.000-0.034) ng/mL Total Protein 7.3 (6.3-8.2) g/dL Albumin 4.2 (3.5-5.0) g/dL 11/30/22 Range/Units 15:38 WBC (3.8-10.6) k/uL RBC (3.80-5.40) m/uL Hgb (11.4-16.0) gm/dL Hct (34.0-46.0) % MCV (80.0-100.0) fL MCH (25.0-35.0) pg MCHC (31.0-37.0) g/dL RDW (11.5-15.5) % Plt Count (150-450) k/uL MPV Neutrophils % % Lymphocytes % % Monocytes % % Eosinophils % % Basophils % % Neutrophils # (1.3-7.7) k/uL Lymphocytes # (1.0-4.8) k/uL Monocytes # (0-1.0) k/uL Eosinophils # (0-0.7) k/uL Basophils # (0-0.2) k/uL PT (9.0-12.0) sec INR (<1.2) APTT (22.0-30.0) sec Sodium (137-145) mmol/L Potassium (3.5-5.1) mmol/L Chloride (98-107) mmol/L Carbon Dioxide (22-30) mmol/L Anion Gap mmol/L BUN (7-17) mg/dL Creatinine (0.52-1.04) mg/dL Est GFR (CKD-EPI)AfAm (>60 ml/min/1.73 sqM) Est GFR (CKD-EPI)NonAf (>60 ml/min/1.73 sqM) Glucose (74-99) mg/dL Calcium (8.4-10.2) mg/dL Total Bilirubin (0.2-1.3) mg/dL AST (14-36) U/L ALT (4-34) U/L Alkaline Phosphatase (38-126) U/L Troponin I <0.012 (0.000-0.034) ng/mL Total Protein (6.3-8.2) g/dL Albumin (3.5-5.0) g/dL - Radiology Data Chest x-ray: No acute cardiopulmonary disease/process. Noncontrast head CT: No acute intracranial hemorrhage or midline shift. No s ignificant change from prior. Disposition Clinical Impression: Dizziness Disposition: HOME SELF-CARE Condition: Stable Instructions (If sedation given, give patient instructions): Dizziness (ED), Vertigo (ED) Additional Instructions: Return to the ER immediately should he develop increased dizziness, fainting, numbness or weakness, any significant pain, shortness of breath, vomiting, a fever, or new or worsening symptoms. Follow up closely with your primary care provider. Is patient prescribed a controlled substance at d/c from ED?: No Referrals: None,Stated [REFERRING] - 1-2 days Adam Miranda DO [STAFF PHYSICIAN] - 1-2 days Time of Disposition: 19:29
[2022-11-30] MEDS ORDERED: MECLIZINE 12.5 MG TAB PO STA (15:24)
[2022-11-30] MEDS ORDERED: ONDANSETRON 4 MG/2 ML VIAL IVP STA (15:24)
[2022-11-30] MEDS ORDERED: diphenhydrAMINE 50 MG/ML 1 ML VIAL IVP STA (15:24)
[2022-11-30 15:52] LABS: Basophils % (A) 1 %; Eosinophils # (A) 0.3 k/uL (0-0.7); Eosinophils % (A) 4 %; HCT 38.2 % (34.0-46.0); HGB 12.5 gm/dL (11.4-16.0); Lymphocytes # (A) 2.7 k/uL (1.0-4.8); Lymphocytes % (A) 35 %; MCH 29.8 pg (25.0-35.0); MCHC 32.7 g/dL (31.0-37.0); MCV 91.1 fL (80.0-100.0); Mean Platelet Volume 8.2; Monocytes # (A) 0.7 k/uL (0-1.0); Monocytes % (A) 9 %; Neutrophils # (A) 3.7 k/uL (1.3-7.7); Neutrophils % (A) 48 %; Platelet Count 292 k/uL (150-450); RBC 4.19 m/uL (3.80-5.40); RDW 13.1 % (11.5-15.5); WBC 7.8 k/uL (3.8-10.6)
[2022-11-30 16:02] LABS: Albumin 4.2 g/dL (3.5-5.0); Calcium 9.5 mg/dL (8.4-10.2); Potassium 4.7 mmol/L (3.5-5.1); Total Bilirubin 0.6 mg/dL (0.2-1.3); Total Protein 7.3 g/dL (6.3-8.2)
--- NOTE | 2022-11-30 16:02 | CT ---
EXAMINATION TYPE: CT brain wo con DATE OF EXAM: 11/30/2022 HISTORY: dizziness CT DLP: 1096.4 mGycm. Automated Exposure Control for Dose Reduction was Utilized. TECHNIQUE: CT scan of the head is performed without contrast. COMPARISON: CT brain September 06, 2019. FINDINGS: There is no acute intracranial hemorrhage or midline shift identified. There is mild diff use ventricular and sulcal prominence consistent with diffuse age-related cerebral atrophy. Flores-whit e matter differentiation fairly well-maintained. The globes are intact and the visualized sinuses ar e clear. Patchy cerumen in the left external auditory canal canal is present. IMPRESSION: No acute intracranial hemorrhage or midline shift. No significant change from prior.
[2022-11-30] MEDS ORDERED: LORazepam 2 MG/ML INJ IV STA (16:04)
[2022-11-30 16:07] LABS: INR 0.9 (<1.2); Partial Thromboplastin Time 22.1 sec (22.0-30.0); Prothrombin Time 9.7 sec (9.0-12.0)
[2022-11-30] MEDS ORDERED: FUROSEMIDE 20 MG TAB PO STA (16:11)
[2022-11-30] MEDS ORDERED: LISINOPRIL-HCTZ 10-12.5 MG 1 EACH TAB PO STA (16:18)
--- NOTE | 2022-11-30 16:57 | XR ---
EXAMINATION TYPE: XR chest 1V portable DATE OF EXAM: 11/30/2022 4:46 PM COMPARISON: Chest radiographs from 02/21/2021 TECHNIQUE: XR chest 1V portable Portable AP radiograph of the chest. CLINICAL INDICATION:Female, 76 years old with history of dizziness; FINDINGS: Lungs/Pleura: There is no evidence of pleural effusion, focal consolidation, or pneumothorax. Pulmonary vascularity: Unremarkable. Heart/mediastinum: Cardiomediastinal silhouette is prominent in size. Musculoskeletal: No acute osseous pathology. IMPRESSION: No acute cardiopulmonary disease/process.
[2022-11-30 19:56] VITALS: BP 186/100; PULSE 60; RESP 16
== END 2022-11-30 19:56 | disposition home or self-care (01) ==
LOC: EC 14:41
DX: R42 Dizziness and giddiness (principal); I10 Essential (primary) hypertension; Z88.5 Allergy status to narcotic agent; Z88.0 Allergy status to penicillin; Z86.16 Personal history of COVID-19; Z90.49 Acquired absence of other specified parts of digestive tract
CPT/HCPCS: 36415; 93005; 80053; 84484; 85025; 85610; 85730; 71045; 70450; 99285; 96374; 96375 ×2; J2060; J1200; J2405

== ENCOUNTER 2024-03-02 10:07 | Emergency (ER) | payer MEDICARE, OTHER ==
[2024-03-02 10:50] VITALS: BP 155/94; PULSE 68; RESP 18; TEMP 97.3
--- NOTE | 2024-03-02 11:11 | ED ---
Fall HPI - General Chief Complaint: Fall Stated Complaint: Fall Time Seen by Provider: 03/02/24 10:45 Source: patient, family, RN notes reviewed Mode of arrival: ambulatory - History of Present Illness Initial Comments: 78-year-old female presenting with mechanical fall 8 hours prior to arrival. Patient states she was getting up from bed to use the restroom when she felt a cramp in her leg and fell to the ground. Patient reports hitting head and she believes she lost consciousness but is unsure and the fall was unwitnessed. Patient is also endorsing left shoulder pain worse with movement. Denies any other concerns or injuries. Denies lightheadedness, nausea, vomiting, chest pain. - Related Data Home Medications Medication Instructions Recorded Confirmed Esomeprazole Magnesium [NexIUM] 20 mg PO DAILY 11/30/22 11/30/22 Lisinopril-Hctz 10-12.5 mg 1 tab PO DAILY 11/30/22 11/30/22 [Zestoretic 10-12.5] Previous Rx's Medication Instructions Recorded Ondansetron Odt [Zofran Odt] 4 mg PO Q8HR PRN #10 tab 03/02/24 Allergies Allergy/AdvReac Type Severity Reaction Status Date / Time codeine Allergy Unknown Verified 03/02/24 10:22 morphine Allergy Throat Verified 03/02/24 10:22 Swelling Penicillins Allergy Swelling Verified 03/02/24 10:22 Review of Systems ROS Statement: Those systems with pertinent positive or pertinent negative responses have been documented in the HPI. ROS Other: All systems not noted in ROS Statement are negative. Past Medical History Past Medical History: Chest Pain / Angina, Hyperlipidemia, Hypertension Additional Past Medical History / Comment(s): covid 02/16/21 History of Any Multi-Drug Resistant Organisms: None Reported Past Surgical History: Cholecystectomy, Heart Catheterization, Hysterectomy Additional Past Surgical History / Comment(s): bladder suspension Past Psychological History: No Psychological Hx Reported Smoking Status: Never smoker Past Alcohol Use History: None Reported Past Drug Use History: None Reported General Exam Limitations: no limitations General appearance: alert, in no apparent distress Head exam: Present: atraumatic, normocephalic, other (Nonbleeding abrasion present on bridge of nose. Mild edema and bruising around right eyelid.) Eye exam: Present: normal appearance, PERRL, EOMI. Absent: scleral icterus, conjunctival injection, periorbital swelling ENT exam: Present: normal exam, mucous membranes moist Neck exam: Present: normal inspection. Absent: tenderness, meningismus, lymphadenopathy Respiratory exam: Present: normal lung sounds bilaterally. Absent: respiratory distress, wheezes, rales, rhonchi, stridor Cardiovascular Exam: Present: regular rate, normal rhythm, normal heart sounds. Absent: systolic murmur, diastolic murmur, rubs, gallop, clicks Left Shoulder Exam: Present: normal inspection, full ROM, tenderness (Diffuse tenderness over anterior and posterior aspect of left shoulder. Full sensation and radial pulses bilaterally.). Absent: swelling Upper Arm exam: Present: normal inspection, full ROM. Absent: tenderness, swelling Elbow exam: Present: normal inspection, full ROM. Absent: tenderness, swelling Back exam: Present: normal inspection Neurological exam: Present: alert, oriented X3, CN II-XII intact Psychiatric exam: Present: normal affect, normal mood Skin exam: Present: warm, dry, intact, normal color. Absent: rash Course Vital Signs 03/02/24 10:18 Temperature 97.3 F L Pulse Rate 68 Respiratory 18 Rate Blood Pressure 155/94 O2 Sat by Pulse 100 Oximetry Medical Decision Making - Medical Decision Making Was pt. sent in by a medical professional or institution (, PA, INSURANCE CLAIMS PROCESSOR, urgent care, hospital, or [facility]...) When possible be specific @ -No Did you speak to anyone other than the patient for history (EMS, parent, family, police, friend...)? What history was obtained from this source @ -Patient's children supplemented history Did you review nursing and triage notes (agree or disagree)? Why? @ -I reviewed and agree with nursing and triage notes Were old charts reviewed (outside hosp., previous admission, EMS record, old EKG, old radiological studies, urgent care reports/EKG's, [facility] records)? Report findings @ -No old charts were reviewed Differential Diagnosis (chest pain, altered mental status, abdominal pain women, abdominal pain men, vaginal bleeding, weakness, fever, dyspnea, syncope, headache, dizziness, GI bleed, back pain, seizure, CVA, palpatations, mental health, musculoskeletal)? @ -Concussion, intracranial bleed, differential Musculoskeletal Muscular strain, contusion, ligament sprain, fracture, arthritis, septic arthritis, bursitis, cellulitis, muscle spasm, nerve compression, DVT, arterial occlusion, herpes zoster, electrolyte abnormality, tumor.... This is not meant to be in all inclusive list EKG interpreted by me (3pts min.). @ -None X-rays interpreted by me (1pt min.). @ -X-ray of left shoulder negative for acute process, possible rotator cuff tear CT interpreted by me (1pt min.). @ -CT of head and neck negative for acute process U/S interpreted by me (1pt. min.). @ -None done What testing was considered but not performed or refused? (CT, X-rays, U/S, labs)? Why? @ -None What meds were considered but not given or refused? Why? @ -None Did you discuss the management of the patient with other professionals (professionals i.e. , PA, INSURANCE CLAIMS PROCESSOR, lab, RT, psych nurse, social insurance adviser, profiler, teacher, assistant chief nursing officer, case packer and sealer)? Give summary @ -No Was smoking cessation discussed for >3mins.? @ -No Was critical care preformed (if so, how long)? @ -No Were there social determinants of health that impacted care today? How? (Homelessness, low income, unemployed, alcoholism, drug addiction, transportation, low edu. Level, literacy, decrease access to med. care, group home, rehab)? @ -No Was there de-escalation of care discussed even if they declined (Discuss DNR or withdrawal of care, Hospice)? DNR status @ -No What co-morbidities impacted this encounter? (DM, HTN, Smoking, COPD, CAD, Cancer, CVA, ARF, Chemo, Hep., AIDS, mental health diagnosis, sleep apnea, morbid obesity)? @ -None Was patient admitted / discharged? Hospital course, mention meds given and route, prescriptions, significant lab abnormalities, going to OR and other pertinent info. @ -Patient was discharged. Patient was seen and evaluated for head injury status post mechanical fall. Neuro examination normal and patient is neurovascularly intact. CT of head and neck negative for acute process. Left shoulder x-ray negative for acute process, possible rotator cuff injury. Patient given Tylenol for pain. Upon reexamination patient is requesting Zofran for nausea. Strict return symptoms discussed. Patient discharged in stable condition. Undiagnosed new problem with uncertain prognosis? @ -No Drug Therapy requiring intensive monitoring for toxicity (Heparin, Nitro, Insulin, Cardizem)? @ -No Were any procedures done? @ -No Diagnosis/symptom? @ -Acute head injury, left shoulder strain Acute, or Chronic, or Acute on Chronic? @ -Acute Uncomplicated (without systemic symptoms) or Complicated (systemic symptoms)? @ -Uncomplicated Side effects of treatment? @ -No Exacerbation, Progression, or Severe Exacerbation? @ -No Poses a threat to life or bodily function? How? (Chest pain, USA, PA, pneumonia, PE, COPD, DKA, ARF, appy, cholecystitis, CVA, Diverticulitis, Homicidal, Suicidal, threat to staff... and all critical care pts) @ -No Disposition Clinical Impression: Head injury due to trauma, Left shoulder strain Disposition: HOME SELF-CARE Condition: Stable Instructions (If sedation given, give patient instructions): Fall Prevention for Older Adults (ED), Head Injury (ED) Additional Instructions: Please follow-up with PCP in 1 to 3 days. Please return to the Emergency Department if symptoms worsen or any other concerns. Prescriptions: Ondansetron Odt [Zofran Odt] 4 mg PO Q8HR PRN #10 tab PRN Reason: Nausea Is patient prescribed a controlled substance at d/c from ED?: No Referrals: Ludmila Calixto MD [Primary Care Provider] - 1-2 days Time of Disposition: 12:51
[2024-03-02] MEDS: ACETAMINOPHEN TAB 325 MG TAB PO STA (11:21)
--- NOTE | 2024-03-02 11:27 | XR ---
EXAMINATION TYPE: XR shoulder complete LT DATE OF EXAM: 03/02/2024 COMPARISON: NONE HISTORY: Pain TECHNIQUE: Three views are submitted. FINDINGS: The osseous structures are intact. There is no acute fracture or dislocation. Diffuse osteopenia wit h hypertrophic change of the AC joint. Mild glenohumeral joint arthropathy. Chronic deformity of the inferior glenoid. The BE related to remote trauma.. IMPRESSION: 1. No acute process. 2. Mild AC joint arthropathy. Humeral head somewhat high in position correlate for rotator cuff tear. 3. Chronic appearing deformity of the inferior glenoid.
--- NOTE | 2024-03-02 12:13 | CT ---
EXAMINATION TYPE: CT brain simone wo con DATE OF EXAM: 03/02/2024 COMPARISON: 11/30/2022 HISTORY: fell CT DLP: 1488 mGycm, Automated exposure control for dose reduction was used. CONTRAST: Patient injected with 0 mL of Isovue 300. CT of the brain is performed utilizing 3 mm thick sections through the posterior fossa and 3 mm thick sections through the remaining calvarium. Study is performed within 24 hours of arrival to the hospital. No abnormal hyperdensity is present to suggest an acute intracranial hemorrhage. No mass lesion is evident. No acute infarcts are evident. Ventricles and sulci are appropriate for the patient age. There is a tiny retention cyst right maxillary sinus. Remaining paranasal sinuses and mastoid air terrance ls are clear. IMPRESSIONS: 1. No acute intracranial process. Follow-up MRI can be performed as clinically indicated CT cervical spine. COMPARISON: None CT of the cervical spine is performed in the axial plane at 2 mm thick sections. Reconstructed image s in the coronal, and sagittal plane are reviewed on the computer. No acute fractures are evident. Vertebral body alignment is normal. There is loss of disc height throughout the cervical spine. Some mild posterior endplate spurring wit hout spinal canal stenosis is present C4-5 C5-6 C6-7. Small anterior vertebral body spurs are present . Posterior spinal lamellar line is intact. Prevertebral space is normal. Vertebral body heights are preserved. No spinal canal stenosis is evident. C5-6 foraminal stenosis is present from uncovertebral joint hypertrophy and mild left C4-5 foraminal stenosis is present. IMPRESSION: 1. No acute osseous abnormality cervical spine. 2. Degenerative disc changes. 3. Foraminal narrowing C5-6 bilaterally and C4-5 on the left
== END 2024-03-02 13:17 | disposition home or self-care (01) ==
LOC: EC 10:07
DX: S46.912A Strain of unspecified muscle, fascia and tendon at shoulder and upper arm level, left arm, initial encounter (principal); S09.90XA Unspecified injury of head, initial encounter; Z88.5 Allergy status to narcotic agent; Z88.0 Allergy status to penicillin; W06.XXXA Fall from bed, initial encounter
CPT/HCPCS: 70450; 72125; 99284

== ENCOUNTER → 2024-03-17 | Outpatient (CLI) | payer MEDICARE ==
--- NOTE | 2024-03-19 09:18 | US ---
EXAMINATION TYPE: US kidneys/renal and bladder DATE OF EXAM: 03/17/2024 COMPARISON: NONE CLINICAL INDICATION: Female, 78 years old with history of N18.32 CHRONIC KIDNEY DISEASE, STAGE 3B; Ab normal labs, back pain, HTN, Pre Diabetic, Urgency without void, Nocturia EXAM MEASUREMENTS: Right Kidney: 9.2 x 4.7 x 5.2 cm Left Kidney: 10.3 x 4.9 x 4.9 cm Post Void Residual Volume: NA mL Right Kidney: wnl Left Kidney: wnl Bladder: wnl Bilateral Jets seen: ? left jet not seen within a 10 minute period Normal Post Void Residual: NA There is no evidence for hydronephrosis at this point in time. No nephrolithiasis is seen. No nisreen s are identified. The urinary bladder is anechoic. IMPRESSION: Left-sided ureteral jet not clearly visualized. Mild increased echogenicity of renal cortex may refle ct medical renal disease.
== END | disposition home or self-care (01) ==
LOC: RADUSWWP 15:41
PROVIDERS: ATTEND Family Medicine
DX: N18.32 Chronic kidney disease, stage 3b (principal)
CPT/HCPCS: 76770

== ENCOUNTER 2024-09-25 16:11 | Observation (INO) | payer MEDICARE, OTHER ==
[2024-09-25] MEDS: SODIUM CHLORIDE 0.9% 1,000 ML IV ONE ×2 (16:41→18:44)
[2024-09-25] MEDS: ONDANSETRON 4 MG/2 ML VIAL IVP STA (16:41)
[2024-09-25 16:50] LABS: Glucose,Whole Blood 186 mg/dL (70-110)
[2024-09-25 16:54] LABS: Basophils % (A) 0 %; Eosinophils # (A) 0.2 k/uL (0-0.7); Eosinophils % (A) 2 %; HCT 27.7 % (34.0-46.0); HGB 8.2 gm/dL (11.4-16.0); Hypochromasia Marked; Lymphocytes # (A) 2.6 k/uL (1.0-4.8); Lymphocytes % (A) 23 %; MCH 23.7 pg (25.0-35.0); MCHC 29.8 g/dL (31.0-37.0); MCV 79.7 fL (80.0-100.0); Monocytes # (A) 1.5 k/uL (0-1.0); Monocytes % (A) 14 %; Neutrophils # (A) 6.7 k/uL (1.3-7.7); Neutrophils % (A) 59 %; Platelet Count 379 k/uL (150-450); RBC 3.47 m/uL (3.80-5.40); RDW 15.7 % (11.5-15.5); WBC 11.2 k/uL (3.8-10.6)
[2024-09-25 17:06] LABS: ALT 15 U/L (4-34); AST 23 U/L (14-36); African American GFR (CKD) 26 (>60 ml/min/1.73 sqM); Albumin 4.2 g/dL (3.5-5.0); Alkaline Phosphatase 89 U/L (38-126); Anion Gap 12 mmol/L; Blood Urea Nitrogen 46 mg/dL (7-17); Calcium 9.7 mg/dL (8.4-10.2); Carbon Dioxide 23 mmol/L (22-30); Chloride 99 mmol/L (98-107); Glucose 201 mg/dL (74-99); Non-African American GFR(CKD) 23 (>60 ml/min/1.73 sqM); Potassium 4.4 mmol/L (3.5-5.1); Sodium 134 mmol/L (137-145); Total Bilirubin 0.4 mg/dL (0.2-1.3); Total Protein 7.1 g/dL (6.3-8.2)
--- NOTE | 2024-09-25 19:08 | XR ---
EXAMINATION TYPE: XR chest 2V DATE OF EXAM: 09/25/2024 7:01 PM COMPARISON: Previous chest radiograph 11/30/2022. CLINICAL INDICATION: Female, 78 years old with history of altered mental status; [facility] TECHNIQUE: XR chest 2V Frontal and lateral views of the chest. FINDINGS: Cardiomegaly. No acute focal consolidation. No pleural effusion or pneumothorax. No acute osseous and amounted. IMPRESSION: Cardiomegaly without acute abnormality identified in the chest. [facility], , 09/25/2024 7:05 PM
[2024-09-25] MEDS: ACETAMINOPHEN TAB 325 MG TAB PO STA (20:28)
--- NOTE | 2024-09-25 21:06 | ED ---
General Adult HPI - General Chief complaint: Neuro Symptoms/Deficit Stated complaint: Unresponsive,Vomiting Time Seen by Provider: 09/25/24 16:19 Source: patient, EMS Mode of arrival: ambulatory Limitations: no limitations - History of Present Illness Initial comments: 78-year-old female with past medical history of hypertension, chronic kidney disease who presents to the emergency department after she had a syncopal episode. Patient states that she has felt nauseated with vomiting and diarrhea throughout the morning. She went to the bathroom and was found on the bathroom floor by her grandson. She was still conscious. States that she lowered herself to the ground. EMS arrived on scene and attempted to get the patient up and onto the stretcher. At that time the patient had a syncopal episode where she passed out for approximately 30 seconds. They were concerned that the patient was having a stroke. They thought that she had some facial droop. She also had some slurred speech. Upon arrival the patient has regained consci ousness. Speech is clear. She is able to answer questions appropriately. States that she has had diarrhea however she has chronic diarrhea with unknown cause. She has had significant stooling today. Denies black or bloody stools. No history of GI bleeding. 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 She denies any fevers. No sick contacts with similar symptoms. No history of stroke. Denies chest pain or difficulty breathing. No abdominal pain. Does admit to some lower back pain. No other alleviating, precipitating or modifying factors - Related Data Home Medications Medication Instructions Recorded Confirmed Lisinopril-Hctz 10-12.5 mg 1 tab PO DAILY 11/30/22 09/26/24 [Zestoretic 10-12.5] Allergies Allergy/AdvReac Type Severity Reaction Status Date / Time codeine Allergy Unknown Verified 09/26/24 16:14 morphine Allergy Throat Verified 09/26/24 16:14 Swelling Penicillins Allergy Swelling Verified 09/26/24 16:14 Review of Systems ROS Statement: Those systems with pertinent positive or pertinent negative responses have been documented in the HPI. ROS Other: All systems not noted in ROS Statement are negative. Past Medical History Past Medical History: Chest Pain / Angina, Hyperlipidemia, Hypertension Additional Past Medical History / Comment(s): covid 02/16/21 History of Any Multi-Drug Resistant Organisms: None Reported Past Surgical History: Cholecystectomy, Heart Catheterization, Hysterectomy Additional Past Surgical History / Comment(s): bladder suspension Past Psychological History: No Psychological Hx Reported Smoking Status: Never smoker Past Alcohol Use History: None Reported Past Drug Use History: None Reported General Exam Limitations: no limitations General appearance: lethargic Head exam: Present: atraumatic, normocephalic, normal inspection Eye exam: Present: normal appearance, PERRL, EOMI. Absent: scleral icterus, conjunctival injection, periorbital swelling ENT exam: Present: mucous membranes dry Neck exam: Present: normal inspection. Absent: tenderness, meningismus, lymphadenopathy Respiratory exam: Present: normal lung sounds bilaterally. Absent: respiratory distress, wheezes, rales, rhonchi, stridor Cardiovascular Exam: Present: regular rate, normal rhythm, normal heart sounds. Absent: systolic murmur, diastolic murmur, rubs, gallop, clicks GI/Abdominal exam: Present: soft, normal bowel sounds. Absent: distended, tenderness, guarding, rebound, rigid Neurological exam: Present: alert, oriented X3, CN II-XII intact Psychiatric exam: Present: normal affect, normal mood Skin exam: Present: pallor Course Vital Signs 09/25/24 09/25/24 09/25/24 16:14 16:41 18:31 Temperature 97.8 F 97.5 F L Pulse Rate 60 61 72 Respiratory 18 18 18 Rate Blood Pressure 123/66 96/46 136/53 O2 Sat by Pulse 97 98 100 Oximetry 09/25/24 09/26/24 09/26/24 22:05 05:45 07:35 Temperature 97.6 F Pulse Rate 61 69 57 L Respiratory 18 16 14 Rate Blood Pressure 126/82 110/58 151/78 O2 Sat by Pulse 96 97 100 Oximetry 09/26/24 09/26/24 09/26/24 08:15 09:00 10:03 Temperature 97.8 F Pulse Rate 71 75 72 Respiratory 18 20 18 Rate Blood Pressure 151/77 127/58 123/63 O2 Sat by Pulse 100 99 98 Oximetry Medical Decision Making - Medical Decision Making Was pt. sent in by a medical professional or institution (, PA, VIDEO GAME SCRIPT WRITER, urgent care, hospital, or [facility]...) When possible be specific @ -No Did you speak to anyone other than the patient for history (EMS, parent, family, police, friend...)? What history was obtained from this source @ -Spoke with EMS for history Did you review nursing and triage notes (agree or disagree)? Why? @ -I reviewed and agree with nursing and triage notes Were old charts reviewed (outside hosp., previous admission, EMS record, old EKG, old radiological studies, urgent care reports/EKG's, [facility] records)? Report findings @ -No old charts were reviewed Differential Diagnosis (chest pain, altered mental status, abdominal pain women, abdominal pain men, vaginal bleeding, weakness, fever, dyspnea, syncope, headache, dizziness, GI bleed, back pain, seizure, CVA, palpatations, mental health, musculoskeletal)? @ -Differential Weakness: Hypoglycemia, shock, sepsis, hyponatremia, anemia, infection, [place], ETOH, adverse medicine reaction, overdose, stroke, this is not meant to be an all-inclusive list. EKG interpreted by me (3pts min.). @ -Yes and demonstrates sinus rhythm with rate of 64. SD interval 151. QRS 91. QTc of 399. No acute ST segment elevation or depression X-rays interpreted by me (1pt min.). @ -Yes and demonstrates no acute intrathoracic process. No process in the lumbar spine CT interpreted by me (1pt min.). @ -None done U/S interpreted by me (1pt. min.). @ -None done What testing was considered but not performed or refused? (CT, X-rays, U/S, labs)? Why? @ -CT was considered however patient has poor kidney function What meds were considered but not given or refused? Why? @ -None Did you discuss the management of the patient with other professionals (professionals i.e. , PA, VIDEO GAME SCRIPT WRITER, lab, RT, psych nurse, social insurance adviser, senior net web developer, teacher, safety and security officer, gearcase assembler)? Give summary @ -Spoke with EM for the admission Was smoking cessation discussed for >3mins.? @ -No Was critical care preformed (if so, how long)? @ -No Were there social determinants of health that impacted care today? How? (Homelessness, low income, unemployed, alcoholism, drug addiction, transportation, low edu. Level, literacy, decrease access to med. care, assisted, rehab)? @ -No Was there de-escalation of care discussed even if they declined (Discuss DNR or withdrawal of care, Hospice)? DNR status @ -No What co-morbidities impacted this encounter? (DM, HTN, Smoking, COPD, CAD, Cancer, CVA, ARF, Chemo, Hep., AIDS, mental health diagnosis, sleep apnea, morbid obesity)? @ -Chronic kidney disease Was patient admitted / discharged? Hospital course, mention meds given and route, prescriptions, significant lab abnormalities, going to OR and other pertinent info. @ -Upon arrival patient seen and evaluated in trauma 3. Thorough history and physical exam was performed. Patient is lethargic upon arrival. No lateralizing deficits. IV was established. Laboratory studies are conducted. Patient is given 2 L of normal saline. Patient has copious diarrhea while within the emergency department and therefore stool cultures are sent. X-rays a re performed. CT of the abdomen was considered however patient has poor kidney function. She does return to her baseline. I did discuss the results with the patient. I do feel that she needs to be admitted. She does provide resistance however I am able to convince the patient that she should stay the night for observation. I called and spoke with Desire from [facility] who agreed to admit the patient Undiagnosed new problem with uncertain prognosis? @ -No Drug Therapy requiring intensive monitoring for toxicity (Heparin, Nitro, Insulin, Cardizem)? @ -No Were any procedures done? @ -No Diagnosis/symptom? @ -Acute nausea, vomiting, diarrhea, acute syncope Acute, or Chronic, or Acute on Chronic? @ -Acute Uncomplicated (without systemic symptoms) or Complicated (systemic symptoms)? @ -Complicated Side effects of treatment? @ -No Exacerbation, Progression, or Severe Exacerbation? @ -No Poses a threat to life or bodily function? How? (Chest pain, [place], [place], pneumonia, PE, COPD, DKA, ARF, appy, cholecystitis, CVA, Diverticulitis, Homicidal, Suicidal, threat to staff... and all critical care pts) @ -No - Lab Data Result diagrams: 09/26/24 09:59 09/26/24 08:16 Lab Results 09/25/24 09/25/24 09/25/24 Range/Units 16:40 16:40 16:40 WBC 11.2 H (3.8-10.6) k/uL RBC 3.47 L (3.80-5.40) m/uL Hgb 8.2 L (11.4-16.0) gm/dL Hct 27.7 L (34.0-46.0) % MCV 79.7 L (80.0-100.0) fL MCH 23.7 L (25.0-35.0) pg MCHC 29.8 L (31.0-37.0) g/dL RDW 15.7 H (11.5-15.5) % Plt Count 379 (150-450) k/uL MPV 8.0 Neutrophils % 59 % Lymphocytes % 23 % Monocytes % 14 % Eosinophils % 2 % Basophils % 0 % Neutrophils # 6.7 (1.3-7.7) k/uL Lymphocytes # 2.6 (1.0-4.8) k/uL Monocytes # 1.5 H (0-1.0) k/uL Eosinophils # 0.2 (0-0.7) k/uL Basophils # 0.0 (0-0.2) k/uL Hypochromasia Marked Sodium 134 L (137-145) mmol/L Potassium 4.4 (3.5-5.1) mmol/L Chloride 99 (98-107) mmol/L Carbon Dioxide 23 (22-30) mmol/L Anion Gap 12 mmol/L BUN 46 H (7-17) mg/dL Creatinine 2.06 H (0.52-1.04) mg/dL Est GFR (CKD-EPI)AfAm 26 (>60 ml/min/1.73 sqM) Est GFR (CKD-EPI)NonAf 23 (>60 ml/min/1.73 sqM) Glucose 201 H (74-99) mg/dL POC Glucose (mg/dL) (70-110) mg/dL POC Glu [employer] Solution Specialist ID Lactic Ac Sepsis Rflx Plasma Lactic Acid Juan (0.7-2.0) mmol/L Calcium 9.7 (8.4-10.2) mg/dL Magnesium (1.6-2.3) mg/dL Total Bilirubin 0.4 (0.2-1.3) mg/dL AST 23 (14-36) U/L ALT 15 (4-34) U/L Alkaline Phosphatase 89 (38-126) U/L Troponin I <0.012 (0.000-0.034) ng/mL Total Protein 7.1 (6.3-8.2) g/dL Albumin 4.2 (3.5-5.0) g/dL Stool Occult Blood (Negative) Stool Lactoferrin (Negative) C. difficile (EIA) Intrp (Negative) 09/25/24 09/25/24 09/25/24 Range/Units 16:40 16:40 16:48 WBC (3.8-10.6) k/uL RBC (3.80-5.40) m/uL Hgb (11.4-16.0) gm/dL Hct (34.0-46.0) % MCV (80.0-100.0) fL MCH (25.0-35.0) pg MCHC (31.0-37.0) g/dL RDW (11.5-15.5) % Plt Count (150-450) k/uL MPV Neutrophils % % Lymphocytes % % Monocytes % % Eosinophils % % Basophils % % Neutrophils # (1.3-7.7) k/uL Lymphocytes # (1.0-4.8) k/uL Monocytes # (0-1.0) k/uL Eosinophils # (0-0.7) k/uL Basophils # (0-0.2) k/uL Hypochromasia Sodium (137-145) mmol/L Potassium (3.5-5.1) mmol/L Chloride (98-107) mmol/L Carbon Dioxide (22-30) mmol/L Anion Gap mmol/L BUN (7-17) mg/dL Creatinine (0.52-1.04) mg/dL Est GFR (CKD-EPI)AfAm (>60 ml/min/1.73 sqM) Est GFR (CKD-EPI)NonAf (>60 ml/min/1.73 sqM) Glucose (74-99) mg/dL POC Glucose (mg/dL) 186 H (70-110) mg/dL POC Glu [employer] Solution Specialist ID Jose Lou Lactic Ac Sepsis Rflx Plasma Lactic Acid Juan 4.2 H* (0.7-2.0) mmol/L Calcium (8.4-10.2) mg/dL Magnesium 1.4 L (1.6-2.3) mg/dL Total Bilirubin (0.2-1.3) mg/dL AST (14-36) U/L ALT (4-34) U/L Alkaline Phosphatase (38-126) U/L Troponin I (0.000-0.034) ng/mL Total Protein (6.3-8.2) g/dL Albumin (3.5-5.0) g/dL Stool Occult Blood (Negative) Stool Lactoferrin (Negative) C. difficile (EIA) Intrp (Negative) 09/25/24 09/25/24 09/25/24 Range/Units 17:09 19:25 20:10 WBC (3.8-10.6) k/uL RBC (3.80-5.40) m/uL Hgb (11.4-16.0) gm/dL Hct (34.0-46.0) % MCV (80.0-100.0) fL MCH (25.0-35.0) pg MCHC (31.0-37.0) g/dL RDW (11.5-15.5) % Plt Count (150-450) k/uL MPV Neutrophils % % Lymphocytes % % Monocytes % % Eosinophils % % Basophils % % Neutrophils # (1.3-7.7) k/uL Lymphocytes # (1.0-4.8) k/uL Monocytes # (0-1.0) k/uL Eosinophils # (0-0.7) k/uL Basophils # (0-0.2) k/uL Hypochromasia Sodium (137-145) mmol/L Potassium (3.5-5.1) mmol/L Chloride (98-107) mmol/L Carbon Dioxide (22-30) mmol/L Anion Gap mmol/L BUN (7-17) mg/dL Creatinine (0.52-1.04) mg/dL Est GFR (CKD-EPI)AfAm (>60 ml/min/1.73 sqM) Est GFR (CKD-EPI)NonAf (>60 ml/min/1.73 sqM) Glucose (74-99) mg/dL POC Glucose (mg/dL) (70-110) mg/dL POC Glu Azure Principal Solution Specialist ID Lactic Ac Sepsis Rflx Y Plasma Lactic Acid Juan 1.3 (0.7-2.0) mmol/L Calcium (8.4-10.2) mg/dL Magnesium (1.6-2.3) mg/dL Total Bilirubin (0.2-1.3) mg/dL AST (14-36) U/L ALT (4-34) U/L Alkaline Phosphatase (38-126) U/L Troponin I (0.000-0.034) ng/mL Total Protein (6.3-8.2) g/dL Albumin (3.5-5.0) g/dL Stool Occult Blood (Negative) Stool Lactoferrin (Negative) C. difficile (EIA) Intrp Negative (Negative) 09/25/24 09/25/24 Range/Units 20:10 20:10 WBC (3.8-10.6) k/uL RBC (3.80-5.40) m/uL Hgb (11.4-16.0) gm/dL Hct (34.0-46.0) % MCV (80.0-100.0) fL MCH (25.0-35.0) pg MCHC (31.0-37.0) g/dL RDW (11.5-15.5) % Plt Count (150-450) k/uL MPV Neutrophils % % Lymphocytes % % Monocytes % % Eosinophils % % Basophils % % Neutrophils # (1.3-7.7) k/uL Lymphocytes # (1.0-4.8) k/uL Monocytes # (0-1.0) k/uL Eosinophils # (0-0.7) k/uL Basophils # (0-0.2) k/uL Hypochromasia Sodium (137-145) mmol/L Potassium (3.5-5.1) mmol/L Chloride (98-107) mmol/L Carbon Dioxide (22-30) mmol/L Anion Gap mmol/L BUN (7-17) mg/dL Creatinine (0.52-1.04) mg/dL Est GFR (CKD-EPI)AfAm (>60 ml/min/1.73 sqM) Est GFR (CKD-EPI)NonAf (>60 ml/min/1.73 sqM) Glucose (74-99) mg/dL POC Glucose (mg/dL) (70-110) mg/dL POC Glu Azure Principal Solution Specialist ID Lactic Ac Sepsis Rflx Plasma Lactic Acid Juan (0.7-2.0) mmol/L Calcium (8.4-10.2) mg/dL Magnesium (1.6-2.3) mg/dL Total Bilirubin (0.2-1.3) mg/dL AST (14-36) U/L ALT (4-34) U/L Alkaline Phosphatase (38-126) U/L Troponin I (0.000-0.034) ng/mL Total Protein (6.3-8.2) g/dL Albumin (3.5-5.0) g/dL Stool Occult Blood Positive H (Negative) Stool Lactoferrin Negative (Negative) C. difficile (EIA) Intrp (Negative) Disposition Clinical Impression: Syncope, Nausea and vomiting, Diarrhea, STACEY (acute kidney injury) Disposition: ADMITTED IP TO THIS [facility] Condition: Stable Is patient prescribed a controlled substance at d/c from ED?: No Time of Disposition: 21:32 Decision to Admit Reason: Admit from EC Decision Date: 09/25/24 Decision Time: 21:32
[2024-09-25] MEDS ORDERED: ACETAMINOPHEN TAB 325 MG TAB PO PRN (21:36)
[2024-09-25] MEDS ORDERED: NALOXONE 0.4 MG/ML 1 ML VIAL IV PRN (21:36)
--- NOTE | 2024-09-25 22:30 | XR ---
EXAMINATION TYPE: XR lumbar spine 2 or 3V DATE OF EXAM: 09/25/2024 CLINICAL HISTORY: Back pain TECHNIQUE: Frontal and lateral images of the lumbar spine are obtained. COMPARISON: Lumbar spine x-ray 2011 FINDINGS: There are 5 lumbar type vertebral bodies redemonstrated. Persistent levoconvex scoliosis c entered at L2 level. Vertebral body heights are maintained. Moderate to severe disc space narrowing a nd vacuum disc phenomenon at L1-L2 and L2-L3 levels with moderate to severe anterior spurring. Multil evel retrolisthesis is present in the upper to mid lumbar spine similar to prior. More prominent face t arthropathy in the lower lumbar spine is noted. Cholecystectomy clips are redemonstrated. There is more prominent overlying vascular calcification of the abdominal aorta. IMPRESSION: No acute findings are seen in the lumbar spine. Increasing degenerative changes in the l umbar spine are present from 2011 study. [facility], , 09/25/2024 10:28 PM
--- NOTE | 2024-09-25 22:51 | US ---
EXAMINATION TYPE: US kidneys/renal and bladder DATE OF EXAM: 09/25/2024 COMPARISON: US March 17, 2024 CLINICAL INDICATION: Female, 78 years old with history of stacey; STACEY TECHNIQUE: Grayscale imaging of the bilateral kidneys and urinary bladder: FINDINGS: EXAM MEASUREMENTS: Right Kidney: 9.6 x 4.7 x 4.0 cm Left Kidney: 9.1 x 4.2 x 3.9 cm Right Kidney: No evidence of hydro Left Kidney: No evidence of hydro Bladder: wnl Bilateral Jets seen: No Similar findings when compared to prior in March There is no evidence for hydronephrosis at this point in time. Increased cortical echogenicity bilate rally is redemonstrated. No focal renal masses are identified. The urinary bladder is not greatly d istended. IMPRESSION: No hydronephrosis is seen bilaterally. [facility], , 09/25/2024 10:49 PM
[2024-09-25] MEDS: ONDANSETRON 4 MG/2 ML VIAL IVP PRN (23:03)
[2024-09-25] MEDS: SODIUM CHLORIDE 0.9% 1,000 ML IV SCH (23:03)
--- NOTE | 2024-09-26 08:22 | P.HPIM ---
History of Present Illness This is a pleasant 78 years old female with past medical history of multiple medical problems including chronic kidney disease. Presents because she fell and felt dizzy while she was feeling sick and vomiting in the restroom. Patient states that yesterday morning she ate a salad sandwich which she thinks attributed to her symptoms, after 2 hours she started having profuse vomiting and diarrhea which lasted about 2 hours. She cannot count how many times but there was no blood in her vomiting as she states. No blood in her stool. And everything stopped now. She states she was able to eat yesterday. Currently she denies nausea vomiting. No abdominal pain. She states that diarrhea stopped. She feels fine and she wants to go home. She denies chest pain or dyspnea. She denies dysuria or change in frequency or urgency. No headache dizziness weakness or numbness She denies smoking alcohol or illicit drugs Patient states that she has autistic son that she only cares for him and her sister to but she is at work. She wants to go home. I discussed with the patient her medical problem including high creatinine, low hemoglobin, high white cell count and occult blood in stool. Risk including but not limited to cancer of the intestine is also explained for her. Patient verbalized understanding but she does not want to stay for the above reason. Based upon my evaluation patient has capacity to make medical decision. She is alert awake oriented x 3, she follows command and has insight. I explained for the patient to try to eat first this morning before leaving AMA and she agrees. Also I advised her to come to the emergency room if she changes her mind or if she develops any new signs symptoms and she agrees as well. Advised patient to follow-up with her PCP Dr. Otto as soon as possible and she told me she would do that. Hemodynamically she is stable. She is afebrile. WBC is 11.2, hemoglobin 8.2. Creatinine 2.0 with baseline 1.25 about 1 year ago Lactic acid was elevated 4.2 came back to reference range at 1.3 She has positive occult blood in his stool but negative for C. difficile Liver enzymes and troponin were negative Chest x-ray showing cardiomegaly but no acute process of the lungs EKG showing sinus rhythm at [address]-T changes Lumbar x-ray is negative for acute process which shows degenerative changes seen same in 2010, of note currently patient denies chest pain or weakness or tingling in the lower extremity Renal ultrasound is negative for acute process Morning labs are still pending Review of Systems Review of systems CONSTITUTIONAL: No fever, no malaise, no fatigue. HEENT: No recent visual problems or hearing problems. Denied any sore throat. CARDIOVASCULAR: No orthopnea, PND, no palpitations, no syncope. PULMONARY: No shortness of breath, no cough, no hemoptysis. GASTROINTESTINAL: No diarrhea, no nausea, no vomiting, no abdominal pain. Normoactive bowel sounds. NEUROLOGICAL: No headaches, no weakness, no numbness. HEMATOLOGICAL: Denies any bleeding or petechiae. GENITOURINARY: Denies any burning micturition, frequency, or urgency. MUSCULOSKELETAL/RHEUMATOLOGICAL: Denies any joint pain, swelling, or any muscle pain. ENDOCRINE: Denies any polyuria or polydipsia. Past Medical History Past Medical History: Chest Pain / Angina, Hyperlipidemia, Hypertension Additional Past Medical History / Comment(s): covid 02/16/21 History of Any Multi-Drug Resistant Organisms: None Reported Past Surgical History: Cholecystectomy, Heart Catheterization, Hysterectomy Additional Past Surgical History / Comment(s): bladder suspension Past Psychological History: No Psychological Hx Reported Smoking Status: Never smoker Past Alcohol Use History: None Reported Past Drug Use History: None Reported Medications and Allergies Home Medications Medication Instructions Recorded Confirmed Type Lisinopril-Hctz 10-12.5 mg 1 tab PO DAILY 11/30/22 09/25/24 History [Zestoretic 10-12.5] Allergies Allergy/AdvReac Type Severity Reaction Status Date / Time codeine Allergy Unknown Verified 09/25/24 16:20 morphine Allergy Throat Verified 09/25/24 16:20 Swelling Penicillins Allergy Swelling Verified 09/25/24 16:20 Physical Exam Vitals: Vital Signs Temp Pulse Resp BP Pulse Ox 09/26/24 08:15 71 18 151/77 100 09/26/24 07:35 97.6 F 57 L 14 151/78 100 09/26/24 05:45 69 16 110/58 97 09/25/24 22:05 61 18 126/82 96 09/25/24 18:31 97.5 F L 72 18 136/53 100 09/25/24 16:41 97.8 F 61 18 96/46 98 09/25/24 16:14 60 18 123/66 97 Intake and Output 09/25/24 09/26/24 09/26/24 22:59 06:59 14:59 Other: Weight 72.575 kg GENERAL: The patient is alert and oriented x3, not in any acute distress. Well developed, well nourished. HEENT: Pupils are round and equally reacting to light. EOMI. No scleral icterus. No conjunctival pallor. Normocephalic, atraumatic. No pharyngeal erythema. No thyromegaly. CARDIOVASCULAR: S1 and S2 present. No murmurs, rubs, or gallops. PULMONARY: Chest is clear to auscultation, no wheezing , no crackles. ABDOMEN: Soft, nontender, nondistended, normoactive bowel sounds. No palpable organomegaly. MUSCULOSKELETAL: No joint swelling or deformity. EXTREMITIES: No cyanosis, clubbing, or pedal edema. NEUROLOGICAL: Gross neurological examination did not reveal any focal deficits. SKIN: No rashes. no petechiae. Results CBC & Chem 7: 09/25/24 16:40 09/25/24 16:40 Labs: Abnormal Lab Results - Last 24 Hours (Table) 09/25/24 09/25/24 09/25/24 Range/Units 16:40 16:40 16:40 WBC 11.2 H (3.8-10.6) k/uL RBC 3.47 L (3.80-5.40) m/uL Hgb 8.2 L (11.4-16.0) gm/dL Hct 27.7 L (34.0-46.0) % MCV 79.7 L (80.0-100.0) fL MCH 23.7 L (25.0-35.0) pg MCHC 29.8 L (31.0-37.0) g/dL RDW 15.7 H (11.5-15.5) % Monocytes # 1.5 H (0-1.0) k/uL Sodium 134 L (137-145) mmol/L BUN 46 H (7-17) mg/dL Creatinine 2.06 H (0.52-1.04) mg/dL Glucose 201 H (74-99) mg/dL POC Glucose (mg/dL) (70-110) mg/dL Plasma Lactic Acid Juan 4.2 H* (0.7-2.0) mmol/L Magnesium (1.6-2.3) mg/dL Stool Occult Blood (Negative) 09/25/24 09/25/24 09/25/24 Range/Units 16:40 16:48 20:10 WBC (3.8-10.6) k/uL RBC (3.80-5.40) m/uL Hgb (11.4-16.0) gm/dL Hct (34.0-46.0) % MCV (80.0-100.0) fL MCH (25.0-35.0) pg MCHC (31.0-37.0) g/dL RDW (11.5-15.5) % Monocytes # (0-1.0) k/uL Sodium (137-145) mmol/L BUN (7-17) mg/dL Creatinine (0.52-1.04) mg/dL Glucose (74-99) mg/dL POC Glucose (mg/dL) 186 H (70-110) mg/dL Plasma Lactic Acid Juan (0.7-2.0) mmol/L Magnesium 1.4 L (1.6-2.3) mg/dL Stool Occult Blood Positive H (Negative) Assessment and Plan Assessment: Short period of nausea vomiting and diarrhea suspicious for food toxicity versus acute gastroenteritis or others in the differential diagnosis Dehydration secondary to above Syncope most likely secondary to above Acute kidney injury on chronic kidney disease stage III Positive occult blood in the stool Noncompliance Plan: Continue with IV hydration Patient was informed she will need colonoscopy at certain point. She states she had colonoscopy long time ago and agrees to talk to her doctor about this. Risk including but not limited to cancer explained to her and she verbalized understanding Continue with monitoring creatinine and labs C. difficile is negative Nephrology team are consulted Patient does not want to stay in the hospital and she wants to leave A because she is only 1 cares for her autistic son as she describes. Please refer to above for more details GI and DVT prophylaxis Prognosis is guarded
[2024-09-26 09:00] VITALS: TEMP 97.8
[2024-09-26 09:31] LABS: African American GFR (CKD) 22 (>60 ml/min/1.73 sqM); Anion Gap 7 mmol/L; Blood Urea Nitrogen 48 mg/dL (7-17); Calcium 8.7 mg/dL (8.4-10.2); Carbon Dioxide 21 mmol/L (22-30); Chloride 106 mmol/L (98-107); Glucose 97 mg/dL (74-99); Non-African American GFR(CKD) 19 (>60 ml/min/1.73 sqM); Potassium 4.9 mmol/L (3.5-5.1); Sodium 134 mmol/L (137-145)
[2024-09-26 10:04] VITALS: BP 123/63; PULSE 72; RESP 18
[2024-09-26 10:13] LABS: Basophils % (A) 0 %; Eosinophils # (A) 0.1 k/uL (0-0.7); Eosinophils % (A) 1 %; HCT 20.7 % (34.0-46.0); Hypochromasia Marked; Lymphocytes % (A) 19 %; MCH 24.6 pg (25.0-35.0); MCHC 30.6 g/dL (31.0-37.0); MCV 80.4 fL (80.0-100.0); Mean Platelet Volume 7.5; Monocytes # (A) 1.2 k/uL (0-1.0); Monocytes % (A) 12 %; Neutrophils # (A) 6.9 k/uL (1.3-7.7); Neutrophils % (A) 66 %; Platelet Count 339 k/uL (150-450); RBC 2.57 m/uL (3.80-5.40); RDW 15.6 % (11.5-15.5); WBC 10.5 k/uL (3.8-10.6)
[2024-09-26 10:26] LABS: HGB 6.3 gm/dL (11.4-16.0)
== END 2024-09-26 17:10 | disposition left against medical advice (07) ==
LOC: EC 16:11 → 3SCARD 21:38
PROVIDERS: ADMIT Hospitalist; ATTEND Hospitalist
DX: R55 Syncope and collapse (principal); R11.2 Nausea with vomiting, unspecified; R19.7 Diarrhea, unspecified; E86.0 Dehydration; N17.9 Acute kidney failure, unspecified; I12.9 Hypertensive chronic kidney disease with stage 1 through stage 4 chronic kidney disease, or unspecified chronic kidney disease; N18.30 Chronic kidney disease, stage 3 unspecified; R19.5 Other fecal abnormalities; E78.5 Hyperlipidemia, unspecified; Z86.16 Personal history of COVID-19; Z91.199 Patient's noncompliance with other medical treatment and regimen due to unspecified reason; Z79.899 Other long term (current) drug therapy; Z88.0 Allergy status to penicillin; Z88.5 Allergy status to narcotic agent; Z53.29 Procedure and treatment not carried out because of patient's decision for other reasons
CPT/HCPCS: 96376; 96374; 99285; 36415; 93005; 80053; 80048; 83605; 83735; 84484; 85025 ×2; 82272; 87324; 87045; 83630; 87046; 72100; 71046; 76770; G0378 ×2; J2405

== ENCOUNTER 2024-09-26 12:43 | Inpatient (IN) | payer MEDICARE, OTHER ==
--- NOTE | 2024-09-26 13:04 | ED ---
General Adult HPI - General Chief complaint: GI Bleed Stated complaint: Recheck-Transfusion Time Seen by Provider: 09/26/24 12:50 Source: patient, family, RN notes reviewed, old records reviewed Mode of arrival: ambulatory Limitations: no limitations - History of Present Illness Initial comments: This is a 78-year-old female who presents to the emergency department stating that she was here yesterday after she had a syncopal episode and she was admitt ed to the hospital but then she got up today and left AMA. Patient states she got a call today stating her hemoglobin was 6.2 so she came back in. Patient states she has been feeling really weak but she denies chest pain shortness of breath or any palpitations. Patient denies any recent fever chills or cough. Patient has not had any bright red blood per her rectum but she was guaiac positive yesterday. Patient does not remember passing out yesterday. - Related Data Home Medications Medication Instructions Recorded Confirmed Lisinopril-Hctz 10-12.5 mg 1 tab PO DAILY 11/30/22 09/25/24 [Zestoretic 10-12.5] Allergies Allergy/AdvReac Type Severity Reaction Status Date / Time codeine Allergy Unknown Verified 09/25/24 16:20 morphine Allergy Throat Verified 09/25/24 16:20 Swelling Penicillins Allergy Swelling Verified 09/25/24 16:20 Review of Systems ROS Statement: Those systems with pertinent positive or pertinent negative responses have been documented in the HPI. ROS Other: All systems not noted in ROS Statement are negative. Past Medical History Past Medical History: Chest Pain / Angina, Hyperlipidemia, Hypertension Additional Past Medical History / Comment(s): covid 02/16/21 History of Any Multi-Drug Resistant Organisms: None Reported Past Surgical History: Cholecystectomy, Heart Catheterization, Hysterectomy Additional Past Surgical History / Comment(s): bladder suspension Past Psychological History: No Psychological Hx Reported Smoking Status: Never smoker Past Alcohol Use History: None Reported Past Drug Use History: None Reported General Exam - General Exam Comments Initial Comments: GENERAL: Patient is well-developed and well-nourished. Patient is nontoxic and well- hydrated and is in no acute distress. ENT: Neck is soft and supple. No significant lymphadenopathy is noted. Oropharynx is clear. Moist mucous membranes. Neck has full range of motion without eliciting any pain. EYES: The sclera were anicteric and conjunctiva were pink and moist. Extraocular movements were intact and pupils were equal round and reactive to light. Eyelids were unremarkable. PULMONARY: Unlabored respirations. Good breath sounds bilaterally. No audible rales rhonchi or wheezing was noted. CARDIOVASCULAR: There is a regular rate and rhythm without any murmurs gallops or rubs. ABDOMEN: Soft and nontender with normal bowel sounds. SKIN: Patient's skin is slightly pale NEUROLOGIC: Patient is alert and oriented x3. Cranial nerves II through XII are grossly intact. Motor and sensory are also intact. Normal speech, volume and content. Symmetrical smile. MUSCULOSKELETAL: Normal extremities with adequate strength and full range of motion. LYMPHATICS: No significant lymphadenopathy is noted PSYCHIATRIC: Normal psychiatric evaluation. Limitations: no limitations Course Vital Signs 09/26/24 09/26/24 12:50 14:23 Pulse Rate 65 67 Respiratory 18 18 Rate Blood Pressure 130/73 143/70 O2 Sat by Pulse 99 96 Oximetry Medical Decision Making - Medical Decision Making Was pt. sent in by a medical professional or institution (Dr. PA, ACCOUNT MANAGER, urgent care, hospital, or halfway...) When possible be specific @ -No Did you speak to anyone other than the patient for history (EMS, parent, family, police, friend...)? What history was obtained from this source @ -No Did you review nursing and triage notes (agree or disagree)? Why? @ -I reviewed and agree with nursing and triage notes Were old charts reviewed (outside hosp., previous admission, EMS record, old EKG, old radiological studies, urgent care reports/EKG's, halfway records)? Report findings @ -No old charts were reviewed Differential Diagnosis? @ -Differential Syncope: Valvular disease, hypertrophic cardiomyopathy, pulmonary embolism, tamponade, tachycardia, bradycardia, ND, hypovolemia, hemorrhage, dissection, anemia, intracranial hemorrhage, seizure, hypoglycemia, carbon monoxide poisoning, this is not meant to be an all-inclusive list. EKG interpreted by me (3pts min.). @ -As above X-rays interpreted by me (1pt min.). @ -None done CT interpreted by me (1pt min.). @ -None done U/S interpreted by me (1pt. min.). @ -None done What testing was considered but not performed or refused? (CT, X-rays, U/S, labs)? Why? @ -None What meds were considered but not given or refused? Why? @ -None Did you discuss the management of the patient with other professionals (pr ofessionals i.e. , PA, ACCOUNT MANAGER, lab, RT, psych nurse, social group worker, conduit cleaner, teacher, commercial account officer, egg caser)? Give summary @ -Spoke with Dr. Jones he agreed to admit the patient admit the patient wrote admitting orders Was smoking cessation discussed for >3mins.? @ -No Was critical care preformed (if so, how long)? @ -No Were there social determinants of health that impacted care today? How? (Homelessness, low income, unemployed, alcoholism, drug addiction, transportation, low edu. Level, literacy, decrease access to med. care, detention, rehab)? @ -No Was there de-escalation of care discussed even if they declined (Discuss DNR or withdrawal of care, Hospice)? DNR status @ -No What co-morbidities impacted this encounter? (DM, HTN, Smoking, COPD, CAD, Cancer, CVA, ARF, Chemo, Hep., AIDS, mental health diagnosis, sleep apnea, morbid obesity)? @ -None Was patient admitted / discharged? Hospital course, mention meds given and route, prescriptions, significant lab abnormalities, going to OR and other pertinent info. @ -Patient's hemoglobin was 6.2 so patient had 1 unit of packed red blood cells ordered. Patient will be admitted to Dr. Jones. Patient also will be placed on a monitor because she had a syncopal episode yesterday. Undiagnosed new problem with uncertain prognosis? @ -No Drug Therapy requiring intensive monitoring for toxicity (Heparin, Nitro, Insulin, Cardizem)? @ -No Were any procedures done? @ -No Diagnosis/symptom? @ -Syncope Acute, or Chronic, or Acute on Chronic? @ -Acute Uncomplicated (without systemic symptoms) or Complicated (systemic symptoms)? @ -Complicated Side effects of treatment? @ -No Exacerbation, Progression, or Severe Exacerbation? @ -No Poses a threat to life or bodily function? How? (Chest pain, USA, ND, pneumonia, PE, COPD, DKA, ARF, appy, cholecystitis, CVA, Diverticulitis, Homicidal, Suicidal, threat to staff... and all critical care pts) @ -Yes this could be secondary to an arrhythmia and this could lead to further morbidity or mortality Diagnosis/symptom? @ -Hypomagnesemia Acute, or Chronic, or Acute on Chronic? @ -Acute Uncomplicated (without systemic symptoms) or Complicated (systemic symptoms)? @ -Uncomplicated Side effects of treatment? @ -None Exacerbation, Progression, or Severe Exacerbation] @ -No Poses a threat to life or bodily function? @ -No Diagnosis/symptom? @ -Anemia Acute, or Chronic, or Acute on Chronic? @ -Acute Uncomplicated (without systemic symptoms) or Complicated (systemic symptoms)? @ -complicated Side effects of treatment? @ -None Exacerbation, Progression, or Severe Exacerbation] @ -No Poses a threat to life or bodily function? @ -No - Lab Data Result diagrams: 09/26/24 13:29 09/26/24 13:29 Lab Results 09/26/24 09/26/24 09/26/24 Range/Units 13:29 13:29 13:29 WBC 10.6 (3.8-10.6) k/uL RBC 2.56 L (3.80-5.40) m/uL Hgb 6.2 L* (11.4-16.0) gm/dL Hct 20.1 L (34.0-46.0) % MCV 78.6 L (80.0-100.0) fL MCH 24.2 L (25.0-35.0) pg MCHC 30.8 L (31.0-37.0) g/dL RDW 15.4 (11.5-15.5) % Plt Count 355 (150-450) k/uL MPV 7.7 Neutrophils % 64 % Lymphocytes % 18 % Monocytes % 14 % Eosinophils % 1 % Basophils % 0 % Neutrophils # 6.8 (1.3-7.7) k/uL Lymphocytes # 1.9 (1.0-4.8) k/uL Monocytes # 1.4 H (0-1.0) k/uL Eosinophils # 0.1 (0-0.7) k/uL Basophils # 0.0 (0-0.2) k/uL Hypochromasia Marked Poikilocytosis Slight PT 10.7 (10.0-12.5) sec INR 1.0 (<1.2) APTT 22.6 (22.0-30.0) sec Sodium 135 L (137-145) mmol/L Potassium 4.7 (3.5-5.1) mmol/L Chloride 105 (98-107) mmol/L Carbon Dioxide 20 L (22-30) mmol/L Anion Gap 10 mmol/L BUN 47 H (7-17) mg/dL Creatinine 2.36 H (0.52-1.04) mg/dL Est GFR (CKD-EPI)AfAm 22 (>60 ml/min/1.73 sqM) Est GFR (CKD-EPI)NonAf 19 (>60 ml/min/1.73 sqM) Glucose 79 (74-99) mg/dL Calcium 8.7 (8.4-10.2) mg/dL Magnesium 1.3 L (1.6-2.3) mg/dL Total Bilirubin 0.3 (0.2-1.3) mg/dL AST 26 (14-36) U/L ALT 16 (4-34) U/L Alkaline Phosphatase 75 (38-126) U/L Troponin I (0.000-0.034) ng/mL Total Protein 6.7 (6.3-8.2) g/dL Albumin 3.9 (3.5-5.0) g/dL Blood Type Blood Type Confirm Blood Type Recheck Bld Type Recheck Status Antibody Screen Crossmatch Spec Expiration Date 09/26/24 09/26/24 09/26/24 Range/Units 13:29 14:00 14:03 WBC (3.8-10.6) k/uL RBC (3.80-5.40) m/uL Hgb (11.4-16.0) gm/dL Hct (34.0-46.0) % MCV (80.0-100.0) fL MCH (25.0-35.0) pg MCHC (31.0-37.0) g/dL RDW (11.5-15.5) % Plt Count (150-450) k/uL MPV Neutrophils % % Lymphocytes % % Monocytes % % Eosinophils % % Basophils % % Neutrophils # (1.3-7.7) k/uL Lymphocytes # (1.0-4.8) k/uL Monocytes # (0-1.0) k/uL Eosinophils # (0-0.7) k/uL Basophils # (0-0.2) k/uL Hypochromasia Poikilocytosis PT (10.0-12.5) sec INR (<1.2) APTT (22.0-30.0) sec Sodium (137-145) mmol/L Potassium (3.5-5.1) mmol/L Chloride (98-107) mmol/L Carbon Dioxide (22-30) mmol/L Anion Gap mmol/L BUN (7-17) mg/dL Creatinine (0.52-1.04) mg/dL Est GFR (CKD-EPI)AfAm (>60 ml/min/1.73 sqM) Est GFR (CKD-EPI)NonAf (>60 ml/min/1.73 sqM) Glucose (74-99) mg/dL Calcium (8.4-10.2) mg/dL Magnesium (1.6-2.3) mg/dL Total Bilirubin (0.2-1.3) mg/dL AST (14-36) U/L ALT (4-34) U/L Alkaline Phosphatase (38-126) U/L Troponin I <0.012 (0.000-0.034) ng/mL Total Protein (6.3-8.2) g/dL Albumin (3.5-5.0) g/dL Blood Type A Positive Blood Type Confirm A Positive Blood Type Recheck No Previous Record Bld Type Recheck Status CABO Indicated Antibody Screen NEGATIVE Crossmatch See Detail Spec Expiration Date 09/29/2024 - 2299 Critical Care Time Critical Care Time: Yes Total Critical Care Time: 35 Disposition Clinical Impression: Hypomagnesemia, Anemia, Syncope, Acute renal failure Disposition: ADMITTED IP TO THIS HOSP Referrals: Ludmila Calixto MD [Primary Care Provider] - 1-2 days Time of Disposition: 15:06
[2024-09-26] MEDS: SODIUM CHLORIDE 0.9% 500 ML 500 ML IV STA (13:27)
[2024-09-26 13:55] LABS: Basophils % (A) 0 %; Eosinophils # (A) 0.1 k/uL (0-0.7); Eosinophils % (A) 1 %; HCT 20.1 % (34.0-46.0); Hypochromasia Marked; Lymphocytes # (A) 1.9 k/uL (1.0-4.8); Lymphocytes % (A) 18 %; MCH 24.2 pg (25.0-35.0); MCHC 30.8 g/dL (31.0-37.0); MCV 78.6 fL (80.0-100.0); Mean Platelet Volume 7.7; Monocytes # (A) 1.4 k/uL (0-1.0); Monocytes % (A) 14 %; Neutrophils # (A) 6.8 k/uL (1.3-7.7); Neutrophils % (A) 64 %; Platelet Count 355 k/uL (150-450); Poikilocytosis Slight; RBC 2.56 m/uL (3.80-5.40); RDW 15.4 % (11.5-15.5); WBC 10.6 k/uL (3.8-10.6)
[2024-09-26 14:10] LABS: ALT 16 U/L (4-34); AST 26 U/L (14-36); African American GFR (CKD) 22 (>60 ml/min/1.73 sqM); Albumin 3.9 g/dL (3.5-5.0); Alkaline Phosphatase 75 U/L (38-126); Anion Gap 10 mmol/L; Blood Urea Nitrogen 47 mg/dL (7-17); Calcium 8.7 mg/dL (8.4-10.2); Carbon Dioxide 20 mmol/L (22-30); Chloride 105 mmol/L (98-107); Glucose 79 mg/dL (74-99); Magnesium 1.3 mg/dL (1.6-2.3); Non-African American GFR(CKD) 19 (>60 ml/min/1.73 sqM); Potassium 4.7 mmol/L (3.5-5.1); Sodium 135 mmol/L (137-145); Total Bilirubin 0.3 mg/dL (0.2-1.3); Total Protein 6.7 g/dL (6.3-8.2)
[2024-09-26 14:16] LABS: HGB 6.2 gm/dL (11.4-16.0)
[2024-09-26 14:21] LABS: Partial Thromboplastin Time 22.6 sec (22.0-30.0); Prothrombin Time 10.7 sec (10.0-12.5)
[2024-09-26] MEDS: MAGNESIUM SULFATE-D5W PMX 1 GM in DEXTROSE/WATER 1 100ML.BAG IVPB ONE (14:21)
[2024-09-26 19:47] LABS: Anisocytosis Slight; Basophils % (A) 0 %; Eosinophils # (A) 0.2 k/uL (0-0.7); Eosinophils % (A) 2 %; HCT 22.5 % (34.0-46.0); HGB 7.1 gm/dL (11.4-16.0); Hypochromasia Marked; Lymphocytes # (A) 2.8 k/uL (1.0-4.8); Lymphocytes % (A) 27 %; MCH 25.1 pg (25.0-35.0); MCHC 31.4 g/dL (31.0-37.0); Mean Platelet Volume 8.2; Monocytes # (A) 1.2 k/uL (0-1.0); Monocytes % (A) 12 %; Neutrophils # (A) 5.5 k/uL (1.3-7.7); Neutrophils % (A) 54 %; Platelet Count 322 k/uL (150-450); Poikilocytosis Slight; RBC 2.81 m/uL (3.80-5.40); RDW 16.3 % (11.5-15.5); WBC 10.1 k/uL (3.8-10.6)
[2024-09-26 23:36] LABS: Anisocytosis Slight; Basophils % (A) 0 %; Eosinophils # (A) 0.3 k/uL (0-0.7); Eosinophils % (A) 3 %; HCT 21.4 % (34.0-46.0); Hypochromasia Marked; Lymphocytes # (A) 3.1 k/uL (1.0-4.8); Lymphocytes % (A) 34 %; MCHC 31.3 g/dL (31.0-37.0); Monocytes # (A) 1.3 k/uL (0-1.0); Monocytes % (A) 14 %; Neutrophils # (A) 4.1 k/uL (1.3-7.7); Neutrophils % (A) 45 %; Platelet Count 320 k/uL (150-450); Poikilocytosis Slight; RBC 2.67 m/uL (3.80-5.40); WBC 9.2 k/uL (3.8-10.6)
[2024-09-26 23:57] LABS: HGB 6.7 gm/dL (11.4-16.0)
[2024-09-27] MEDS: PANTOPRAZOLE 40 MG/10 ML VIAL IVP SCH (09:51)
[2024-09-27] MEDS: amLODIPine 5 MG TAB PO SCH (09:51)
[2024-09-27 10:38] LABS: Chol/HDL Ratio 2.17 Ratio; LDL Cholesterol,Calculated 69.9 mg/dL (0.0-131.0)
[2024-09-27 10:55] LABS: Basophils # (A) 0.1 k/uL (0-0.2); Basophils % (A) 1 %; Eosinophils # (A) 0.2 k/uL (0-0.7); Eosinophils % (A) 3 %; HCT 28.8 % (34.0-46.0); Hypochromasia Marked; Lymphocytes % (A) 23 %; MCH 25.4 pg (25.0-35.0); MCV 81.9 fL (80.0-100.0); Mean Platelet Volume 7.6; Monocytes # (A) 1.1 k/uL (0-1.0); Monocytes % (A) 12 %; Neutrophils # (A) 5.1 k/uL (1.3-7.7); Neutrophils % (A) 59 %; Platelet Count 329 k/uL (150-450); Poikilocytosis Moderate; RBC 3.52 m/uL (3.80-5.40); RDW 15.9 % (11.5-15.5); WBC 8.7 k/uL (3.8-10.6)
[2024-09-27 11:11] LABS: HGB 8.9 gm/dL (11.4-16.0)
[2024-09-27 11:16] LABS: ALT 15 U/L (4-34); AST 27 U/L (14-36); African American GFR (CKD) 40 (>60 ml/min/1.73 sqM); Albumin 3.5 g/dL (3.5-5.0); Alkaline Phosphatase 51 U/L (38-126); Anion Gap 10 mmol/L; Bilirubin, Delta 0.1 mg/dL (0.0-0.2); Bilirubin,Unconjugated 0.8 mg/dL (0.0-1.1); Blood Urea Nitrogen 31 mg/dL (7-17); Calcium 8.9 mg/dL (8.4-10.2); Carbon Dioxide 21 mmol/L (22-30); Chloride 104 mmol/L (98-107); Glucose 132 mg/dL (74-99); Non-African American GFR(CKD) 34 (>60 ml/min/1.73 sqM); Sodium 135 mmol/L (137-145); Total Bilirubin 0.9 mg/dL (0.2-1.3); Total Protein 6.3 g/dL (6.3-8.2)
--- NOTE | 2024-09-27 11:20 | P.GSCN ---
History of Present Illness Consult date: 09/27/24 Reason for Consult: GI bleed History of present illness: 78-year-old female with recent syncopal episode. Patient found to have a hemoglobin of 6.2. She was admitted left AGAINST MEDICAL ADVICE and came back to the hospital. Patient with a family history of colon cancer in her mother. She did have a colonoscopy but it was over 10 or 20 years ago. She also had an upper endoscopy about 40 years ago. Patient describes chronic reflux. Prior to admission she had episodes of vomiting and diarrhea. This was nonbloody. She does admit to occasional episodes of bright red blood per rectum 2 times per month. This occurs with straining. No abdominal pain. Patient received 2 units transfusion. Feels better now. Review of Systems The patient denies any acute changes in vision or hearing, no dysphagia or o dynophagia, no chest pain or shortness of breath, no dysuria or hematuria, no headache, no runny nose, no melena, no unexplained weight loss Past Medical History Past Medical History: Chest Pain / Angina, Hyperlipidemia, Hypertension, Renal Disease Additional Past Medical History / Comment(s): covid 02/16/21, anemia requiring blood transfuions History of Any Multi-Drug Resistant Organisms: None Reported Past Surgical History: Cholecystectomy, Heart Catheterization, Hysterectomy Additional Past Surgical History / Comment(s): bladder suspension Past Anesthesia/Blood Transfusion Reactions: No Reported Reaction Past Psychological History: No Psychological Hx Reported Smoking Status: Never smoker Past Alcohol Use History: None Reported Past Drug Use History: None Reported Medications and Allergies Home Medications Medication Instructions Recorded Confirmed Type Lisinopril-Hctz 10-12.5 mg 1 tab PO DAILY 11/30/22 09/26/24 History [Zestoretic 10-12.5] Allergies Allergy/AdvReac Type Severity Reaction Status Date / Time codeine Allergy Unknown Verified 09/26/24 16:14 morphine Allergy Throat Verified 09/26/24 16:14 Swelling Penicillins Allergy Swelling Verified 09/26/24 16:14 Surgical - Exam Vital Signs Pulse Resp BP Pulse Ox 65 18 130/73 99 09/26/24 12:50 09/26/24 12:50 09/26/24 12:50 09/26/24 12:50 Physical exam: General: Well-developed, well-nourished HEENT: Normocephalic, sclerae nonicteric Abdomen: Nontender, nondistended Extremities: No edema Neuro: Alert and oriented Results - Labs 09/27/24 09:55 09/26/24 13:29 Abnormal Lab Results - Last 24 Hours (Table) 09/26/24 09/26/24 09/26/24 Range/Units 13:29 13:29 13:29 RBC 2.56 L (3.80-5.40) m/uL Hgb 6.2 L* (11.4-16.0) gm/dL Hct 20.1 L (34.0-46.0) % MCV 78.6 L (80.0-100.0) fL MCH 24.2 L (25.0-35.0) pg MCHC 30.8 L (31.0-37.0) g/dL RDW (11.5-15.5) % Monocytes # 1.4 H (0-1.0) k/uL Sodium 135 L (137-145) mmol/L Carbon Dioxide 20 L (22-30) mmol/L BUN 47 H (7-17) mg/dL Creatinine 2.36 H (0.52-1.04) mg/dL Magnesium 1.3 L (1.6-2.3) mg/dL HDL Cholesterol 73.80 H (40.00-60.00) mg/dL Crossmatch 09/26/24 09/26/24 09/26/24 Range/Units 14:03 19:36 23:07 RBC 2.81 L 2.67 L (3.80-5.40) m/uL Hgb 7.1 L 6.7 L* (11.4-16.0) gm/dL Hct 22.5 L 21.4 L (34.0-46.0) % MCV (80.0-100.0) fL MCH (25.0-35.0) pg MCHC (31.0-37.0) g/dL RDW 16.3 H 16.0 H (11.5-15.5) % Monocytes # 1.2 H 1.3 H (0-1.0) k/uL Sodium (137-145) mmol/L Carbon Dioxide (22-30) mmol/L BUN (7-17) mg/dL Creatinine (0.52-1.04) mg/dL Magnesium (1.6-2.3) mg/dL HDL Cholesterol (40.00-60.00) mg/dL Crossmatch See Detail 09/27/24 Range/Units 09:55 RBC 3.52 L (3.80-5.40) m/uL Hgb 8.9 L D (11.4-16.0) gm/dL Hct 28.8 L (34.0-46.0) % MCV (80.0-100.0) fL MCH (25.0-35.0) pg MCHC (31.0-37.0) g/dL RDW 15.9 H (11.5-15.5) % Monocytes # 1.1 H (0-1.0) k/uL Sodium (137-145) mmol/L Carbon Dioxide (22-30) mmol/L BUN (7-17) mg/dL Creatinine (0.52-1.04) mg/dL Magnesium (1.6-2.3) mg/dL HDL Cholesterol (40.00-60.00) mg/dL Crossmatch Diabetes panel 09/26/24 09/26/24 Range/Units 13:29 13:29 Sodium 135 L (137-145) mmol/L Potassium 4.7 (3.5-5.1) mmol/L Chloride 105 (98-107) mmol/L Carbon Dioxide 20 L (22-30) mmol/L BUN 47 H (7-17) mg/dL Creatinine 2.36 H (0.52-1.04) mg/dL Glucose 79 (74-99) mg/dL Calcium 8.7 (8.4-10.2) mg/dL AST 26 (14-36) U/L ALT 16 (4-34) U/L Alkaline Phosphatase 75 (38-126) U/L Total Protein 6.7 (6.3-8.2) g/dL Albumin 3.9 (3.5-5.0) g/dL Triglycerides 81.50 (0.00-149.00) mg/dL HDL Cholesterol 73.80 H (40.00-60.00) mg/dL Calcium panel 09/26/24 Range/Units 13:29 Calcium 8.7 (8.4-10.2) mg/dL Albumin 3.9 (3.5-5.0) g/dL Pituitary panel 09/26/24 Range/Units 13:29 Sodium 135 L (137-145) mmol/L Potassium 4.7 (3.5-5.1) mmol/L Chloride 105 (98-107) mmol/L Carbon Dioxide 20 L (22-30) mmol/L BUN 47 H (7-17) mg/dL Creatinine 2.36 H (0.52-1.04) mg/dL Glucose 79 (74-99) mg/dL Calcium 8.7 (8.4-10.2) mg/dL Adrenal panel 09/26/24 Range/Units 13:29 Sodium 135 L (137-145) mmol/L Potassium 4.7 (3.5-5.1) mmol/L Chloride 105 (98-107) mmol/L Carbon Dioxide 20 L (22-30) mmol/L BUN 47 H (7-17) mg/dL Creatinine 2.36 H (0.52-1.04) mg/dL Glucose 79 (74-99) mg/dL Calcium 8.7 (8.4-10.2) mg/dL Total Bilirubin 0.3 (0.2-1.3) mg/dL AST 26 (14-36) U/L ALT 16 (4-34) U/L Alkaline Phosphatase 75 (38-126) U/L Total Protein 6.7 (6.3-8.2) g/dL Albumin 3.9 (3.5-5.0) g/dL Assessment and Plan (1) GI bleed Narrative/Plan: Will proceed with upper and lower endoscopy tomorrow. Risks of bleeding and bowel perforation reviewed. Patient understands and wishes to proceed. Current Visit: Yes Status: Acute Code(s): K92.2 - GASTROINTESTINAL HEMORRHAGE, UNSPECIFIED SNOMED Code(s): 32400598
--- NOTE | 2024-09-27 13:03 | P.HPIM ---
History of Present Illness This is a pleasant 78 years old female with past medical history of multiple medical problems including chronic kidney disease. Presents because she fell and felt dizzy while she was feeling sick and vomiting in the restroom. Patient states that yesterday morning she ate a salad sandwich which she thinks attributed to her symptoms, after 2 hours she started having profuse vomiting and diarrhea which lasted about 2 hours. She cannot count how many times but there was no blood in her vomiting as she states. No blood in her stool. And everything stopped now. She states she was able to eat yesterday. Currently she denies nausea vomiting. No abdominal pain. She states that diarrhea stopped. She feels fine and she wants to go home. She denies chest pain or dyspnea. She denies dysuria or change in frequency or urgency. No headache dizziness weakness or numbness She denies smoking alcohol or illicit drugs Patient states that she has autistic son that she only cares for him and her sister to but she is at work. She wants to go home. After leaving [facility], hemoglobin came back critical at 6.2, I discussed with the bedside nurse to contact her and I called the patient myself yesterday and asked her to come to emergency room. Repeat hemoglobin yesterday was 6.2 and received 2 units of blood transfusion, hemoglobin went up to 7.1 and then 6.7 last night. Hemodynamically she is stable. She is afebrile. WBC is 11.2, hemoglobin 8.2, went down to 6.3 and 6.2 yesterday, she received units of blood transfusion and went down to 7.1 and 6.7. Repeat hemoglobin from this morning still pending Creatinine 2.0 with baseline 1.25 about 1 year ago Lactic acid was elevated 4.2 came back to reference range at 1.3 She has positive occult blood in his stool but negative for C. difficile Liver enzymes and troponin were negative Chest x-ray showing cardiomegaly but no acute process of the lungs EKG showing sinus rhythm at [address]-T changes Lumbar x-ray is negative for acute process which shows degenerative changes seen same in 2010, of note currently patient denies chest pain or weakness or tingling in the lower extremity Renal ultrasound is negative for acute process Morning labs are still pending Review of Systems Review of systems CONSTITUTIONAL: No fever, no malaise, no fatigue. HEENT: No recent visual problems or hearing problems. Denied any sore throat. CARDIOVASCULAR: No orthopnea, PND, no palpitations, no syncope. PULMONARY: No shortness of breath, no cough, no hemoptysis. GASTROINTESTINAL: No diarrhea, no nausea, no vomiting, no abdominal pain. Norm oactive bowel sounds. NEUROLOGICAL: No headaches, no weakness, no numbness. HEMATOLOGICAL: Denies any bleeding or petechiae. GENITOURINARY: Denies any burning micturition, frequency, or urgency. MUSCULOSKELETAL/RHEUMATOLOGICAL: Denies any joint pain, swelling, or any muscle pain. ENDOCRINE: Denies any polyuria or polydipsia. Past Medical History Past Medical History: Chest Pain / Angina, Hyperlipidemia, Hypertension, Renal Disease Additional Past Medical History / Comment(s): covid 02/16/21, anemia requiring blood transfuions History of Any Multi-Drug Resistant Organisms: None Reported Past Surgical History: Cholecystectomy, Heart Catheterization, Hysterectomy Additional Past Surgical History / Comment(s): bladder suspension Past Anesthesia/Blood Transfusion Reactions: No Reported Reaction Past Psychological History: No Psychological Hx Reported Smoking Status: Never smoker Past Alcohol Use History: None Reported Past Drug Use History: None Reported Medications and Allergies Home Medications Medication Instructions Recorded Confirmed Type Lisinopril-Hctz 10-12.5 mg 1 tab PO DAILY 11/30/22 09/26/24 History [Zestoretic 10-12.5] Allergies Allergy/AdvReac Type Severity Reaction Status Date / Time codeine Allergy Unknown Verified 09/26/24 16:14 morphine Allergy Throat Verified 09/26/24 16:14 Swelling Penicillins Allergy Swelling Verified 09/26/24 16:14 Physical Exam Vitals: Vital Signs Temp Pulse Pulse Resp BP BP Pulse Ox 09/27/24 08:46 100 09/27/24 08:39 60 16 182/91 97 09/27/24 04:05 97.6 F 65 16 158/73 92 L 09/27/24 01:59 97.6 F 62 20 163/75 98 09/27/24 01:39 97.6 F 63 18 154/67 95 09/27/24 01:32 18 09/27/24 01:29 98.7 F 65 18 136/64 95 09/26/24 23:15 98.7 F 82 18 135/70 96 09/26/24 19:32 98.1 F 72 18 149/78 97 09/26/24 18:40 97.8 F 65 18 162/89 97 09/26/24 18:29 97.8 F 71 17 178/80 98 09/26/24 18:26 71 178/80 98 09/26/24 18:06 98.4 F 67 16 149/68 96 09/26/24 16:21 98.5 F 65 20 139/67 97 09/26/24 16:01 97.9 F 97 18 141/71 09/26/24 15:39 98.3 F 73 20 123/63 96 09/26/24 14:23 67 18 143/70 96 09/26/24 12:50 65 18 130/73 99 Intake and Output 09/26/24 09/27/24 09/27/24 22:59 06:59 14:59 Intake Total 310 310 Balance 310 310 Intake: Blood Product 310 310 Rc As-1 Unit 310 [id number] Rc As-1 Unit 310 [id number] Other: # Voids 2 Weight 72.575 kg 77.2 kg GENERAL: The patient is alert and oriented x3, not in any acute distress. Well developed, well nourished. HEENT: Pupils are round and equally reacting to light. EOMI. No scleral icterus. No conjunctival pallor. Normocephalic, atraumatic. No pharyngeal erythema. No thyromegaly. CARDIOVASCULAR: S1 and S2 present. No murmurs, rubs, or gallops. PULMONARY: Chest is clear to auscultation, no wheezing , no crackles. ABDOMEN: Soft, nontender, nondistended, normoactive bowel sounds. No palpable o rganomegaly. MUSCULOSKELETAL: No joint swelling or deformity. EXTREMITIES: No cyanosis, clubbing, or pedal edema. NEUROLOGICAL: Gross neurological examination did not reveal any focal deficits. SKIN: No rashes. no petechiae. Results CBC & Chem 7: 09/26/24 23:07 09/26/24 13:29 Labs: Abnormal Lab Results - Last 24 Hours (Table) 09/26/24 09/26/24 09/26/24 Range/Units 13:29 13:29 14:03 RBC 2.56 L (3.80-5.40) m/uL Hgb 6.2 L* (11.4-16.0) gm/dL Hct 20.1 L (34.0-46.0) % MCV 78.6 L (80.0-100.0) fL MCH 24.2 L (25.0-35.0) pg MCHC 30.8 L (31.0-37.0) g/dL RDW (11.5-15.5) % Monocytes # 1.4 H (0-1.0) k/uL Sodium 135 L (137-145) mmol/L Carbon Dioxide 20 L (22-30) mmol/L BUN 47 H (7-17) mg/dL Creatinine 2.36 H (0.52-1.04) mg/dL Magnesium 1.3 L (1.6-2.3) mg/dL Crossmatch See Detail 09/26/24 09/26/24 Range/Units 19:36 23:07 RBC 2.81 L 2.67 L (3.80-5.40) m/uL Hgb 7.1 L 6.7 L* (11.4-16.0) gm/dL Hct 22.5 L 21.4 L (34.0-46.0) % MCV (80.0-100.0) fL MCH (25.0-35.0) pg MCHC (31.0-37.0) g/dL RDW 16.3 H 16.0 H (11.5-15.5) % Monocytes # 1.2 H 1.3 H (0-1.0) k/uL Sodium (137-145) mmol/L Carbon Dioxide (22-30) mmol/L BUN (7-17) mg/dL Creatinine (0.52-1.04) mg/dL Magnesium (1.6-2.3) mg/dL Crossmatch Thrombosis Risk Factor Assmnt - Choose All That Apply Each Risk Factor Represents 3 Points: Age 75 years or older, History of DVT/PE Thrombosis Risk Factor Assessment Total Risk Factor Score: 6 Thrombosis Risk Factor Assessment Level: High Risk Assessment and Plan Assessment: Significant anemia, suspicious for acute blood loss anemia s/p 2 unit of blood transfusion Short period of nausea vomiting and diarrhea suspicious for food toxicity versus acute gastroenteritis or others in the differential diagnosis Dehydration secondary to above Syncope most likely secondary to above Acute kidney injury on chronic kidney disease stage III Positive occult blood in the stool Nonadherence Plan: Continue with IV hydration Monitor hemoglobin. Transfuse RBCs if hemoglobin less than 7.0 Continue with monitoring creatinine and labs C. difficile is negative General Surgery team were consulted. Please note there is no GI team coverage in this facility this weekend Monitor creatinine GI prophylaxis DVT prophylaxis: Mechanical in view of severe anemia Prognosis is guarded
[2024-09-27] MEDS: PEG 3350 (236 GM/BTL) + LYTES 4,000 ML BOTTLE PO ONE (15:02)
[2024-09-27] MEDS: ONDANSETRON 4 MG/2 ML VIAL IVP PRN (15:17)
[2024-09-28 07:01] LABS: Anisocytosis Slight; HCT 29.6 % (34.0-46.0); HGB 9.1 gm/dL (11.4-16.0); Hypochromasia Marked; MCH 25.3 pg (25.0-35.0); MCHC 30.8 g/dL (31.0-37.0); MCV 82.3 fL (80.0-100.0); Platelet Count 308 k/uL (150-450); Poikilocytosis Moderate; RBC 3.59 m/uL (3.80-5.40); RDW 16.2 % (11.5-15.5); WBC 8.2 k/uL (3.8-10.6)
[2024-09-28 07:14] LABS: African American GFR (CKD) 45 (>60 ml/min/1.73 sqM); Anion Gap 8 mmol/L; Blood Urea Nitrogen 21 mg/dL (7-17); Calcium 8.9 mg/dL (8.4-10.2); Carbon Dioxide 27 mmol/L (22-30); Chloride 103 mmol/L (98-107); Glucose 91 mg/dL (74-99); Magnesium 1.1 mg/dL (1.6-2.3); Non-African American GFR(CKD) 39 (>60 ml/min/1.73 sqM); Potassium 4.5 mmol/L (3.5-5.1); Sodium 138 mmol/L (137-145)
[2024-09-28] MEDS ORDERED: Magnesium Replacement Protocol 1 EACH MISC MISCELLANE PRN (07:17)
[2024-09-28] MEDS: hydrALAZINE HCL 25 MG TAB PO PRN (09:09)
[2024-09-28] MEDS: ZINC OXIDE PASTE (Z-GUARD) 1 APPLIC TOPICAL PRN (11:00)
[2024-09-28] MEDS: MAGNESIUM SULFATE-D5W PMX 1 GM in DEXTROSE/WATER 1 100ML.BAG IVPB SCH (11:00)
--- NOTE | 2024-09-28 11:25 | P.PN ---
Subjective This is a pleasant 78 years old female with past medical history of multiple medical problems including chronic kidney disease. Presents because she fell and felt dizzy while she was feeling sick and vomiting in the restroom. Patient states that yesterday morning she ate a salad sandwich which she thinks attributed to her symptoms, after 2 hours she started having profuse vomiting and diarrhea which lasted about 2 hours. She cannot count how many times but there was no blood in her vomiting as she states. No blood in her stool. And everything stopped now. She states she was able to eat yesterday. Currently she denies nausea vomiting. No abdominal pain. She states that diarrhea stopped. She feels fine and she wants to go home. She denies chest pain or dyspnea. She denies dysuria or change in frequency or urgency. No headache dizziness weakness or numbness She denies smoking alcohol or illicit drugs Patient states that she has autistic son that she only cares for him and her sister to but she is at work. She wants to go home. After leaving [facility], hemoglobin came back critical at 6.2, I discussed with the bedside nurse to contact her and I called the patient myself yesterday and asked her to come to emergency room. Repeat hemoglobin yesterday was 6.2 and received 2 units of blood transfusion, hemoglobin went up to 7.1 and then 6.7 last night. Hemodynamically she is stable. She is afebrile. WBC is 11.2, hemoglobin 8.2, went down to 6.3 and 6.2 yesterday, she received units of blood transfusion and went down to 7.1 and 6.7. Repeat hemoglobin from this morning still pending Creatinine 2.0 with baseline 1.25 about 1 year ago Lactic acid was elevated 4.2 came back to reference range at 1.3 She has positive occult blood in his stool but negative for C. difficile Liver enzymes and troponin were negative Chest x-ray showing cardiomegaly but no acute process of the lungs EKG showing sinus rhythm at [address]-T changes Lumbar x-ray is negative for acute process which shows degenerative changes seen same in 2010, of note currently patient denies chest pain or weakness or tingling in the lower extremity Renal ultrasound is negative for acute process Morning labs are still pending 09/28 No chest pain or abdominal pain No other symptoms Patient planned for endoscopy with surgery team today Low magnesium 1.1 has been replaced Son and [id number] at bedside and all questions answered after patient gave approval Patient is eager to go home after the scope because of her autistic son Possible discharge in 24 to 48 hours if she remains stable and improving and pending procedure results Objective - Vital Signs Vital signs: Vital Signs Temp 97.8 F 09/28/24 09:08 Pulse 58 L 09/28/24 11:05 Resp 18 09/28/24 11:05 BP 165/95 09/28/24 11:05 Pulse Ox 97 09/28/24 11:05 FiO2 Intake & Output 09/27/24 09/28/24 09/28/24 18:59 06:59 18:59 Intake Total 180 Balance 180 Weight 76.6 kg Intake: Oral 180 Other: Voiding Method Toilet Toilet # Voids 2 1 - Exam GENERAL: The patient is alert and oriented x3, not in any acute distress. Well developed, well nourished. HEENT: Pupils are round and equally reacting to light. EOMI. No scleral icterus. No conjunctival pallor. Normocephalic, atraumatic. No pharyngeal erythema. No thyromegaly. CARDIOVASCULAR: S1 and S2 present. No murmurs, rubs, or gallops. PULMONARY: Chest is clear to auscultation, no wheezing , no crackles. ABDOMEN: Soft, nontender, nondistended, normoactive bowel sounds. No palpable organomegaly. MUSCULOSKELETAL: No joint swelling or deformity. EXTREMITIES: No cyanosis, clubbing, or pedal edema. NEUROLOGICAL: Gross neurological examination did not reveal any focal deficits. SKIN: No rashes. no petechiae. - Labs CBC & Chem 7: 09/28/24 06:25 09/28/24 06:25 Labs: Abnormal Lab Results - Last 24 Hours (Table) 09/27/24 09/28/24 09/28/24 Range/Units 09:55 06:25 06:25 RBC 3.59 L (3.80-5.40) m/uL Hgb 9.1 L (11.4-16.0) gm/dL Hct 29.6 L (34.0-46.0) % MCHC 30.8 L (31.0-37.0) g/dL RDW 16.2 H (11.5-15.5) % Sodium 135 L (137-145) mmol/L Carbon Dioxide 21 L (22-30) mmol/L BUN 31 H 21 H (7-17) mg/dL Creatinine 1.47 H 1.34 H (0.52-1.04) mg/dL Glucose 132 H (74-99) mg/dL Magnesium 1.1 L (1.6-2.3) mg/dL Assessment and Plan Assessment: Significant anemia, suspicious for acute blood loss anemia s/p 2 unit of blood transfusion Short period of nausea vomiting and diarrhea suspicious for food toxicity versus acute gastroenteritis or others in the differential diagnosis Dehydration secondary to above Syncope most likely secondary to above Acute kidney injury on chronic kidney disease stage III Positive occult blood in the stool Nonadherence Plan: Continue with IV hydration Monitor hemoglobin. Transfuse RBCs if hemoglobin less than 7.0 Continue with monitoring creatinine and labs C. difficile is negative General Surgery team were consulted. Please note there is no GI team coverage in this facility this weekend Monitor creatinine GI prophylaxis DVT prophylaxis: Mechanical in view of severe anemia Prognosis is guarded
[2024-09-28] MEDS: LACTATED RINGERS 1,000 ML IV ONE (12:28)
[2024-09-28] MEDS ORDERED: ONDANSETRON 4 MG/2 ML VIAL ONE (12:35)
[2024-09-28] MEDS ORDERED: PROPOFOL 10 MG/ML 20 ML VIAL IV ONE (12:35)
[2024-09-28] MEDS ORDERED: diphenhydrAMINE 50 MG/ML 1 ML VIAL ONE (12:35)
--- NOTE | 2024-09-28 13:09 | P.PCN ---
Date of Procedure: 09/28/24 Procedure(s) Performed: PREOPERATIVE DIAGNOSIS: GI bleed, anemia POSTOPERATIVE DIAGNOSIS: Gastritis, moderate-sized hiatal hernia, mild distal esophagitis, diverticulosis PROCEDURE: 1. EGD with biopsy 2. Colonoscopy ANESTHESIA: MAC SURGEON: Jimy Feliz M.D. SPECIMENS: Antrum, GE junction ENDOSCOPIC PROCEDURE: The patient was on the endoscopy table in the left decubitus position. The Olympus gastroscope was inserted into the oropharynx and passed under direct visualization to the region of the third portion of the duodenum. From that point the scope was slowly withdrawn inspecting all surfaces carefully. There were no neoplastic inflammatory or polypoid lesions throughout the duodenum. The pylorus was widely patent. The stomach was carefully inspected. There was mild gastritis present. A biopsy of the antrum took place to rule out H. pylori. Retroflexion revealed a moderate-sized hiatal hernia. The GE junction was present 3 to 4 cm above the diaphragmatic hiatus. At the GE junction there was mild inflammatory changes that was noncircumferential. No ulcerations or neoplastic changes were seen. The remainder the esophagus likewise appeared normal. The patient was kept on the endoscopy table in the left decubitus position. The Olympus colonoscope was inserted into the anus and passed under direct visualization to the base of the cecum. The appendiceal orifice was visualized. From that point the scope was slowly withdrawn inspecting all surfaces carefully. There were no neoplastic inflammatory or polypoid lesions throughout the cecum, ascending, transverse, descending, sigmoid and rectum. There was mild left-sided diverticulosis noted. Digital rectal examination was normal. The patient was taken to the recovery room in stable condition per anesthesia guidelines. RECOMMENDATIONS: Patient did have hemorrhoids at the anus. No active bleeding seen. Resume diet. Continue anemia workup. Continue antiacid therapy.
[2024-09-29] MEDS: KETOROLAC 15 MG/ML 1 ML VIAL IVP PRN (05:25)
[2024-09-29 07:00] LABS: Anisocytosis Slight; Basophils # (A) 0.1 k/uL (0-0.2); Basophils % (A) 1 %; Eosinophils # (A) 0.3 k/uL (0-0.7); Eosinophils % (A) 3 %; HGB 9.2 gm/dL (11.4-16.0); Hypochromasia Marked; Lymphocytes # (A) 2.1 k/uL (1.0-4.8); Lymphocytes % (A) 24 %; MCH 25.4 pg (25.0-35.0); MCHC 30.8 g/dL (31.0-37.0); MCV 82.4 fL (80.0-100.0); Mean Platelet Volume 7.5; Monocytes # (A) 1.2 k/uL (0-1.0); Monocytes % (A) 14 %; Neutrophils # (A) 4.8 k/uL (1.3-7.7); Neutrophils % (A) 55 %; Platelet Count 325 k/uL (150-450); Poikilocytosis Slight; RBC 3.64 m/uL (3.80-5.40); RDW 16.4 % (11.5-15.5); WBC 8.9 k/uL (3.8-10.6)
[2024-09-29 07:24] LABS: African American GFR (CKD) 46 (>60 ml/min/1.73 sqM); Anion Gap 7 mmol/L; Blood Urea Nitrogen 18 mg/dL (7-17); Calcium 8.8 mg/dL (8.4-10.2); Carbon Dioxide 27 mmol/L (22-30); Chloride 101 mmol/L (98-107); Glucose 95 mg/dL (74-99); Magnesium 1.7 mg/dL (1.6-2.3); Non-African American GFR(CKD) 40 (>60 ml/min/1.73 sqM); Potassium 4.6 mmol/L (3.5-5.1); Sodium 135 mmol/L (137-145)
[2024-09-29 09:24] VITALS: RESP 18
[2024-09-29] MEDS: MAGNESIUM SULFATE-D5W PMX 1 GM in DEXTROSE/WATER 1 100ML.BAG IVPB ONE (09:31)
[2024-09-29 11:26] VITALS: BP 107/78; PULSE 60; TEMP 97.7
--- NOTE | 2024-09-29 15:13 | P.PN ---
Subjective Progress Note Date: 09/29/24 SURGICAL PROGRESS NOTE CHIEF COMPLAINT: Anemia HISTORY OF PRESENT ILLNESS: Patient is status post EGD and colonoscopy. Results reported gastritis, moderate size hiatal hernia, distal esophagitis and dive rticulosis. Patient denies any abdominal pain. Denies any nausea or vomiting. She denies any blood in her stools. Hemoglobin is stable at 9.2. PHYSICAL EXAM: VITAL SIGNS: Reviewed. GENERAL: Well-developed in no acute distress. HEENT: No sclera icterus. Extraocular movements grossly intact. Moist buccal mucosa. Head is atraumatic, normocephalic. ABDOMEN: Soft. Nondistended. Nontender. NEUROLOGIC: Alert and oriented. Cranial nerves II through XII grossly intact. ASSESSMENT: 1. Anemia status post EGD and colonoscopy PLAN: -Patient can be discharged from surgical standpoint -Continue antacid therapy at discharge Physician Career Development Coordinator note has been reviewed by physician. Signing provider agrees with the documented findings, assessment, and plan of care. Objective - Vital Signs Vital signs: Vital Signs Temp 97.7 F 09/29/24 11:23 Pulse 60 09/29/24 11:23 Resp 18 09/29/24 11:23 BP 107/78 09/29/24 11:23 Pulse Ox 98 09/29/24 11:23 FiO2 Intake & Output 09/28/24 09/29/24 09/29/24 18:59 06:59 18:59 Intake Total 636 540 368 Balance 636 540 368 Weight 76.9 kg Intake: IV 400 10 Invasive Line 2 10 Oral 236 540 358 Other: Voiding Method Toilet Toilet Toilet # Voids 2 1 2 - Labs CBC & Chem 7: 09/29/24 05:26 09/29/24 05:26 Labs: Abnormal Lab Results - Last 24 Hours (Table) 09/26/24 09/29/24 09/29/24 Range/Units 14:03 05:26 05:26 RBC 3.64 L (3.80-5.40) m/uL Hgb 9.2 L (11.4-16.0) gm/dL Hct 30.0 L (34.0-46.0) % MCHC 30.8 L (31.0-37.0) g/dL RDW 16.4 H (11.5-15.5) % Monocytes # 1.2 H (0-1.0) k/uL Sodium 135 L (137-145) mmol/L BUN 18 H (7-17) mg/dL Creatinine 1.31 H (0.52-1.04) mg/dL Crossmatch See Detail
--- NOTE | 2024-10-04 22:36 | P.DS ---
Providers Date of admission: 09/26/24 15:07 Expected date of discharge: 09/29/24 Attending physician: Jose Hernandez MD Consults: 09/27/24 09:21 Consult Physician Routine Consulting Provider: Jimy Feliz Consult Reason/Comments: anemia, r/o gi bleed Do you want consulting provider notified?: Yes Primary care physician: [facility] Course: Discharge diagnosis Significant anemia, suspicious for acute blood loss anemia s/p 2 unit of blood transfusion. Status post EGD and colonoscopy. Short period of nausea vomiting and diarrhea suspicious for food toxicity versus acute gastroenteritis or others in the differential diagnosis Dehydration secondary to above Syncope most likely secondary to above Hypertension Acute kidney injury on chronic kidney disease stage III. Improving. Positive occult blood in the stool Nonadherence DVT prophylaxis and GI prophylaxis. Hospital course This is a pleasant 78 years old female with past medical history of multiple me dical problems including chronic kidney disease. Presents because she fell and felt dizzy while she was feeling sick and vomiting in the restroom. Patient states that yesterday morning she ate a salad sandwich which she thinks attributed to her symptoms, after 2 hours she started having profuse vomiting and diarrhea which lasted about 2 hours. She cannot count how many times but there was no blood in her vomiting as she states. No blood in her stool. And everything stopped now. She states she was able to eat yesterday. Currently she denies nausea vomiting. No abdominal pain. She states that diarrhea stopped. She feels fine and she wants to go home. She denies chest pain or dyspnea. She denies dysuria or change in frequency or urgency. No headache dizziness weakness or numbness She denies smoking alcohol or illicit drugs Patient states that she has autistic son that she only cares for him and her sister to but she is at work. She wants to go home. After leaving [facility], hemoglobin came back critical at 6.2, I discussed with the bedside nurse to contact her and I called the patient myself yesterday and asked her to come to emergency room. Repeat hemoglobin yesterday was 6.2 and received 2 units of blood transfusion, hemoglobin went up to 7.1 and then 6.7 last night. Hemodynamically she is stable. She is afebrile. WBC is 11.2, hemoglobin 8.2, went down to 6.3 and 6.2 yesterday, she received units of blood transfusion and went down to 7.1 and 6.7. Repeat hemoglobin from this morning still pending Creatinine 2.0 with baseline 1.25 about 1 year ago Lactic acid was elevated 4.2 came back to reference range at 1.3 She has positive occult blood in his stool but negative for C. difficile Liver enzymes and troponin were negative Chest x-ray showing cardiomegaly but no acute process of the lungs EKG showing sinus rhythm at [address]-T changes Lumbar x-ray is negative for acute process which shows degenerative changes seen same in 2010, of note currently patient denies chest pain or weakness or tingling in the lower extremity Renal ultrasound is negative for acute process Morning labs are still pending 09/28 No chest pain or abdominal pain No other symptoms Patient planned for endoscopy with surgery team today Low magnesium 1.1 has been replaced Son and [id number] at bedside and all questions answered after patient gave approval Patient is eager to go home after the scope because of her autistic son Possible discharge in 24 to 48 hours if she remains stable and improving and pending procedure results 09/29/2024 Patient is alert, oriented x 3. No complaints of chest pain or shortness of breath. Denied any complaints of abdominal pain. Patient was started on oral diet. Status post EGD and colonoscopy today. Showed gastritis, moderate-sized hiatal hernia, distal esophagitis and diverticulosis. Hemoglobin stable. Patient is on PPI. Lab data showed WBC 8.9 hemoglobin 9.2 and platelets 325 sodium 135 potassium 4.6 chloride 101 bicarb is 27 BUN 18 and creatinine 1.31 and blood sugar 95 and magnesium improved to 1.7. Patient is cleared from general surgery standpoint. PHYSICAL EXAMINATION: Patient is lying in the bed comfortably, no acute distress, awake alert and oriented.. HEENT: Normocephalic. Neck is supple. Pupils reactive. Nostrils clear. Oral cavity is moist. Neck reveals no JVD, carotid bruits, or thyromegaly. CHEST EXAMINATION: Trachea is central. Symmetrical expansion. Lung jeffrey clear to auscultation and percussion. CARDIAC: Normal S1, S2 with no gallops. No murmurs ABDOMEN: Soft. Bowel sounds normal. No organomegaly. No abdominal bruits. Extremities: reveal no edema. No clubbing or cyanosis Neurologically awake, alert, oriented x3 with well-coordinated movements. No focal deficits noted Skin: No rash or skin lesions. Psychiatric: Coperative. Nonsuicidal Musculoskeletal: No joint swelling or deformity. Normal range of motion. Vital signs: Vital Signs Temp 97.7 F 09/29/24 11:23 Pulse 60 09/29/24 11:23 Resp 18 09/29/24 11:23 BP 107/78 09/29/24 11:23 Pulse Ox 98 09/29/24 11:23 FiO2 Intake & Output 09/28/24 09/29/24 09/29/24 18:59 06:59 18:59 Intake Total 636 540 368 Balance 636 540 368 Weight 76.9 kg Intake: IV 400 10 Invasive Line 2 10 Oral 236 540 358 Other: Voiding Method Toilet Toilet Toilet # Voids 2 1 2 Patient Condition at Discharge: Stable Plan - Discharge Summary Discharge Rx Participant: No New Discharge Prescriptions: New Pantoprazole [Protonix] 40 mg PO AC-BRKFST #30 tab Continue Lisinopril-Hctz 10-12.5 mg [Zestoretic 10-12.5] 1 tab PO DAILY Discharge Medication List Lisinopril-Hctz 10-12.5 mg [Zestoretic 10-12.5] 1 tab PO DAILY 11/30/22 [History] Pantoprazole [Protonix] 40 mg PO AC-BRKFST #30 tab 09/29/24 [Rx] Follow up Appointment(s)/Referral(s): Ludmila Calixto MD [Primary Care Provider] - 1-2 days (office did not answer. please call and make appointment ) Patient Instructions/Handouts: Syncope (DC), Hypomagnesemia (DC), Anemia (DC) Discharge Disposition: HOME SELF-CARE
== END 2024-09-29 14:27 | disposition home or self-care (01) | DRG 378 ==
LOC: EC 12:43 → OBSVTOIN 15:07 → 3SCARD 15:07
PROVIDERS: ADMIT Internal Medicine; ATTEND Internal Medicine
PROC: 30233N1 Transfusion of Nonautologous Red Blood Cells into Peripheral Vein, Percutaneous Approach (ICD-10-PCS; 2024-09-26)
PROC: 0DB78ZX Excision of Stomach, Pylorus, Via Natural or Artificial Opening Endoscopic, Diagnostic (ICD-10-PCS; principal; 2024-09-28 07:30)
PROC: 0DJD8ZZ Inspection of Lower Intestinal Tract, Via Natural or Artificial Opening Endoscopic (ICD-10-PCS; 2024-09-28 07:30)
DX: K29.71 Gastritis, unspecified, with bleeding (principal); D62 Acute posthemorrhagic anemia; N17.9 Acute kidney failure, unspecified; K21.01 Gastro-esophageal reflux disease with esophagitis, with bleeding; K44.9 Diaphragmatic hernia without obstruction or gangrene; N18.30 Chronic kidney disease, stage 3 unspecified; E78.5 Hyperlipidemia, unspecified; E83.42 Hypomagnesemia; I12.9 Hypertensive chronic kidney disease with stage 1 through stage 4 chronic kidney disease, or unspecified chronic kidney disease; I51.7 Cardiomegaly; R55 Syncope and collapse; E86.0 Dehydration; K57.31 Diverticulosis of large intestine without perforation or abscess with bleeding; K64.9 Unspecified hemorrhoids; Z88.0 Allergy status to penicillin; Z88.5 Allergy status to narcotic agent
CPT/HCPCS: 36415; 36430; 43239; 45378; 80048; 80053; 80061; 80076; 83735; 84484; 85025; 85027; 85610; 85730; 86850; 86900; 86901; 86920; 88305; 94760; 96361; 96365; 99291

== ENCOUNTER 2024-12-03 16:29 | Inpatient (IN) | payer MEDICARE, OTHER ==
--- NOTE | 2024-12-03 17:12 | ED ---
Recheck HPI - General Source: patient Mode of arrival: ambulatory Limitations: no limitations <Mala Ross - Last Filed: 12/03/24 17:11> <Raven Gonzalez - Last Filed: 12/03/24 22:04> - General Chief Complaint: Recheck/Abnormal Lab/Rx Stated Complaint: high potassium Time Seen by Provider: 12/03/24 17:11 - History of Present Illness Initial Comments: Quick [id number] female sent by Dr. Keys's office for hyperkalemia. States she had routine labs drawn yesterday and was called by their office today instructing her to come to the ER for further evaluation due to high potassium. States she has a history of kidney disease and she was told that her kidney disease has worsened. (Mala Ross) Patient also reports to a dog bite on her right hand. States that her dog bit her when she was leaving the house. Patient is up-to-date on her tetanus. States that her dog is up-to-date on his vaccines as well. (Raven Gonzalez) - Related Data Home Medications Medication Instructions Recorded Confirmed Albuterol Sulfate [Ventolin HFA] 2 puff INHALATION RT-TID 12/03/24 12/03/24 Atorvastatin [Lipitor] 10 mg PO DAILY 12/03/24 12/03/24 lisinopriL [Zestril] 10 mg PO DAILY 12/03/24 12/03/24 Previous Rx's Medication Instructions Recorded Pantoprazole [Protonix] 40 mg PO AC-BRKFST #30 tab 09/29/24 Allergies Allergy/AdvReac Type Severity Reaction Status Date / Time codeine Allergy Unknown Verified 12/03/24 21:23 morphine Allergy Throat Verified 12/03/24 21:23 Swelling Penicillins Allergy Swelling Verified 12/03/24 21:23 Review of Systems ROS Other: All systems not noted in ROS Statement are negative. <Mala Ross - Last Filed: 12/03/24 17:11> ROS Other: All systems not noted in ROS Statement are negative. <Raven Gonzalez - Last Filed: 12/03/24 22:04> ROS Statement: Those systems with pertinent positive or pertinent negative responses have been documented in the HPI. Past Medical History Past Medical History: Chest Pain / Angina, Hyperlipidemia, Hypertension, Renal D isease Additional Past Medical History / Comment(s): covid 02/16/21, anemia requiring blood transfuions History of Any Multi-Drug Resistant Organisms: None Reported Past Surgical History: Cholecystectomy, Heart Catheterization, Hysterectomy Additional Past Surgical History / Comment(s): bladder suspension Past Anesthesia/Blood Transfusion Reactions: No Reported Reaction Past Psychological History: No Psychological Hx Reported Smoking Status: Never smoker Past Alcohol Use History: None Reported Past Drug Use History: None Reported <Mala Ross - Last Filed: 12/03/24 17:11> General Exam Limitations: no limitations <Mala Ross - Last Filed: 12/03/24 17:11> - General Exam Comments Initial Comments: Visual Physical Exam General: Well-appearing, nontoxic, no acute distress. Head: Normocephalic, atraumatic Eyes: PERRLA, EOMI ENT: Airway patent Chest: Nonlabored breathing Skin: No visual rash, normal skin tone Neuro: Alert and oriented 3 Musculoskeletal: No gross abnormalities (Mala Ross) Course Vital Signs 12/03/24 12/03/24 12/03/24 17:01 20:38 20:49 Temperature 97.7 F Pulse Rate 66 111 H 102 H Respiratory 18 Rate Blood Pressure 96/82 O2 Sat by Pulse 98 Oximetry 12/03/24 12/03/24 21:00 21:24 Temperature Pulse Rate 89 71 Respiratory 18 18 Rate Blood Pressure 117/47 76/31 O2 Sat by Pulse 94 L 95 Oximetry Medical Decision Making <Mala Ross - Last Filed: 12/03/24 17:11> - Lab Data Result diagrams: 12/03/24 18:15 12/03/24 18:15 <Raven Gonzalez - Last Filed: 12/03/24 22:04> - Medical Decision Making I completed the quick note portion of this chart signed Mala Ross PA-C (Mala Ross) Was pt. sent in by a medical professional or institution ([facility], [employer], urgent care, hospital, or half-way...) When possible be specific @ -[No] Did you speak to anyone other than the patient for history (EMS, parent, family, police, friend...)? What history was obtained from this source @ -[No] Did you review nursing and triage notes (agree or disagree)? Why? @ -[I reviewed and agree with nursing and triage notes] Were old charts reviewed (outside hosp., previous admission, EMS record, old EKG, old radiological studies, urgent care reports/EKG's, half-way records)? Report findings @ -[No old charts were reviewed] Differential Diagnosis (chest pain, altered mental status, abdominal pain women, abdominal pain men, vaginal bleeding, weakness, fever, dyspnea, syncope, headache, dizziness, GI bleed, back pain, seizure, CVA, palpatations, mental health, musculoskeletal)? @ -[not applicable] EKG interpreted by me (3pts min.). @ -EKG completed at 1816 demonstrates sinus rhythm with a rate of 60. MO interval 142. QRS 94. QTc of 379. No acute ST segment elevations or depressions Repeat EKG done at 2104 when the patient started having chest pain demonstrates sinus rhythm with a rate of 97. MO interval 150. QRS 89. QTc of 395. There is now some ST depression 2, 3, aVF as well as V3 through V6. aVR elevation Additional EKG done at 2117 demonstrates sinus rhythm with a rate of 71. MO interval 152. QRS 86. QTc of 394. Mild ST depression V3 through V6 Final EKG done at 2118 demonstrates sinus rhythm with rate of 76. MO interval 142. QRS 91. QTc of 404. Continued mild ST depression in the inferior leads X-rays interpreted by me (1pt min.). @ -[None done] CT interpreted by me (1pt min.). @ -[None done] U/S interpreted by me (1pt. min.). @ -[None done] What testing was considered but not performed or refused? (CT, X-rays, U/S, labs)? Why? @ -[None] What meds were considered but not given or refused? Why? @ -[None] Did you discuss the management of the patient with other professionals (professionals i.e. , PA, [employer], lab, RT, psych nurse, 7th grade social studies teacher, activity aide, teacher, correction officer head, piano case maker)? Give summary @ -[No] Was smoking cessation discussed for >3mins.? @ -[No] Was critical care preformed (if so, how long)? @ -[No] Were there social determinants of health that impacted care today? How? (Homelessness, low income, unemployed, alcoholism, drug addiction, transpor tation, low edu. Level, literacy, decrease access to med. care, intermediate, rehab)? @ -[No] Was there de-escalation of care discussed even if they declined (Discuss DNR or withdrawal of care, Hospice)? DNR status @ -[No] What co-morbidities impacted this encounter? (DM, HTN, Smoking, COPD, CAD, Cancer, CVA, ARF, Chemo, Hep., AIDS, mental health diagnosis, sleep apnea, morbid obesity)? @ -[None] Was patient admitted / discharged? Hospital course, mention meds given and route, prescriptions, significant lab abnormalities, going to OR and other pertinent info. @ -[hospital course] Undiagnosed new problem with uncertain prognosis? @ -[No] Drug Therapy requiring intensive monitoring for toxicity (Heparin, Nitro, Insulin, Cardizem)? @ -[No] Were any procedures done? @ -[No] Diagnosis/symptom? @ -[default] Acute, or Chronic, or Acute on Chronic? @ -[default] Uncomplicated (without systemic symptoms) or Complicated (systemic symptoms)? @ -[default] Side effects of treatment? @ -[No] Exacerbation, Progression, or Severe Exacerbation? @ -[No] Poses a threat to life or bodily function? How? (Chest pain, [place], [place], pneumonia, PE, COPD, DKA, ARF, appy, cholecystitis, CVA, Diverticulitis, Homicidal, Suicidal, threat to staff... and all critical care pts) @ -[No] (Raven Gonzalez) - Lab Data Lab Results 12/03/24 12/03/24 Range/Units 18:15 18:15 WBC 9.2 (3.8-10.6) k/uL RBC 4.02 (3.80-5.40) m/uL Hgb 10.5 L (11.4-16.0) gm/dL Hct 32.7 L (34.0-46.0) % MCV 81.4 (80.0-100.0) fL MCH 26.1 (25.0-35.0) pg MCHC 32.1 (31.0-37.0) g/dL RDW 20.1 H (11.5-15.5) % Plt Count 304 (150-450) k/uL MPV 7.5 Neutrophils % 71 % Lymphocytes % 11 % Monocytes % 13 % Eosinophils % 1 % Basophils % 0 % Neutrophils # 6.6 (1.3-7.7) k/uL Lymphocytes # 1.0 (1.0-4.8) k/uL Monocytes # 1.2 H (0-1.0) k/uL Eosinophils # 0.1 (0-0.7) k/uL Basophils # 0.0 (0-0.2) k/uL Hypochromasia Slight Anisocytosis Moderate Microcytosis Slight Sodium 132 L (137-145) mmol/L Potassium 6.0 H (3.5-5.1) mmol/L Chloride 103 (98-107) mmol/L Carbon Dioxide 18 L (22-30) mmol/L Anion Gap 11 mmol/L BUN 51 H (7-17) mg/dL Creatinine 1.57 H (0.52-1.04) mg/dL Est GFR (CKD-EPI)AfAm 37 (>60 ml/min/1.73 sqM) Est GFR (CKD-EPI)NonAf 32 (>60 ml/min/1.73 sqM) Glucose 103 H (74-99) mg/dL Calcium 9.8 (8.4-10.2) mg/dL Phosphorus 3.7 (2.5-4.5) mg/dL Magnesium 1.6 (1.6-2.3) mg/dL Total Bilirubin 1.0 (0.2-1.3) mg/dL AST 30 (14-36) U/L ALT 19 (4-34) U/L Alkaline Phosphatase 86 (38-126) U/L Total Protein 7.7 (6.3-8.2) g/dL Albumin 4.5 (3.5-5.0) g/dL Disposition <Mala Ross - Last Filed: 12/03/24 17:11> Is patient prescribed a controlled substance at d/c from ED?: No Time of Disposition: 20:24 Decision to Admit Reason: Admit from EC Decision Date: 12/03/24 Decision Time: 20:24 <Raven Gonzalez - Last Filed: 12/03/24 22:04> Clinical Impression: STACEY (acute kidney injury), Hyperkalemia, Chest pain Disposition: ADMITTED IP TO THIS HOSP Condition: Stable
[2024-12-03 18:23] LABS: Anisocytosis Moderate; Basophils % (A) 0 %; Eosinophils # (A) 0.1 k/uL (0-0.7); Eosinophils % (A) 1 %; HCT 32.7 % (34.0-46.0); HGB 10.5 gm/dL (11.4-16.0); Hypochromasia Slight; Lymphocytes % (A) 11 %; MCH 26.1 pg (25.0-35.0); MCHC 32.1 g/dL (31.0-37.0); MCV 81.4 fL (80.0-100.0); Mean Platelet Volume 7.5; Microcytosis Slight; Monocytes # (A) 1.2 k/uL (0-1.0); Monocytes % (A) 13 %; Neutrophils # (A) 6.6 k/uL (1.3-7.7); Neutrophils % (A) 71 %; Platelet Count 304 k/uL (150-450); RBC 4.02 m/uL (3.80-5.40); RDW 20.1 % (11.5-15.5); WBC 9.2 k/uL (3.8-10.6)
[2024-12-03 18:32] LABS: ALT 19 U/L (4-34); AST 30 U/L (14-36); African American GFR (CKD) 37 (>60 ml/min/1.73 sqM); Albumin 4.5 g/dL (3.5-5.0); Alkaline Phosphatase 86 U/L (38-126); Anion Gap 11 mmol/L; Blood Urea Nitrogen 51 mg/dL (7-17); Calcium 9.8 mg/dL (8.4-10.2); Carbon Dioxide 18 mmol/L (22-30); Chloride 103 mmol/L (98-107); Glucose 103 mg/dL (74-99); Magnesium 1.6 mg/dL (1.6-2.3); Non-African American GFR(CKD) 32 (>60 ml/min/1.73 sqM); Phosphorus 3.7 mg/dL (2.5-4.5); Sodium 132 mmol/L (137-145); Total Protein 7.7 g/dL (6.3-8.2)
[2024-12-03] MEDS ORDERED: NALOXONE 0.4 MG/ML 1 ML VIAL IV PRN (20:24)
[2024-12-03] MEDS: ALBUTEROL NEBULIZED 2.5 MG/3 ML INHALATION STA (20:38)
[2024-12-03] MEDS: SODIUM CHLORIDE 0.9% 1,000 ML IV SCH (20:53)
[2024-12-03] MEDS: SODIUM ZIRCONIUM CYCLOSILICATE 10 GM PACKET PO ONE (20:55)
[2024-12-03] MEDS: INSULIN REGULAR 100 UNIT/ML VIAL (IV) IV ONE (20:55)
[2024-12-03] MEDS: DEXTROSE 50% SYRINGE 50 ML IVP STA (20:55)
[2024-12-03 21:12] LABS: Glucose,Whole Blood 254 mg/dL (70-110)
[2024-12-03] MEDS: HYDROmorphone 0.5 MG/0.5 ML SYRINGE IVP STA (21:13)
[2024-12-03] MEDS: ONDANSETRON 4 MG/2 ML VIAL IVP STA ×2 (21:27→21:37)
[2024-12-03] MEDS ORDERED: HEPARIN SODIUM 1,000 UN/ML (10ML VL) IV PRN (21:50)
--- NOTE | 2024-12-03 21:50 | XR ---
EXAMINATION TYPE: XR chest 1V portable DATE OF EXAM: 12/03/2024 9:43 PM COMPARISON: 09/25/2024 CLINICAL INDICATION: Female, 78 years old with history of chest pain, TECHNIQUE: XR chest 1V portable view(s) obtained. FINDINGS: The heart size is normal. The pulmonary vasculature is normal. The lungs are clear. Moderate size hiatal hernia is present. IMPRESSION: 1. No acute pulmonary process. 2. Moderate-sized hernia. [facility], Workstation: [facility], 12/03/2024 9:48 PM
[2024-12-03 21:55] LABS: Glucose,Whole Blood 172 mg/dL (70-110)
[2024-12-03] MEDS: SODIUM CHLORIDE 0.9% 1,000 ML IV ONE (22:05)
[2024-12-03] MEDS: HEPARIN SOD,PORK IN 0.45% NACL 25,000 UNIT in 0.45% NACL 1 250ML.BAG IV SCH (23:22)
[2024-12-03] MEDS: HEPARIN SODIUM 1,000 UN/ML (10ML VL) IV ONE (23:23)
[2024-12-03] MEDS: ASPIRIN 81 MG PO STA (23:25)
[2024-12-03] MEDS: metroNIDAZOLE 500 MG TAB PO SCH (23:26)
[2024-12-03] MEDS: CEFUROXIME 500 MG in SODIUM CHLORIDE 0.9% 50 ML IVPB SCH (23:26)
--- NOTE | 2024-12-04 02:31 | US ---
EXAM: US Retroperitoneal Limited, Renal CLINICAL HISTORY: US Reason: Renal failure TECHNIQUE: Real-time limited ultrasound of the retroperitoneum with image documentation. COMPARISON: September 25, 2024 FINDINGS: Right kidney: Unremarkable. No stones. No hydronephrosis. The right kidney measures 8.9 x 4.1 x 3.5 cm, 66 mL. Left kidney: Unremarkable. No stones. No hydronephrosis. The left kidney measures 9.3 x 3.9 x 3.9 cm, 78 mL. Bladder: The urinary bladder is partially distended and unremarkable. The left ureteral jet is visible. The right ureteral jet is not seen. IMPRESSION: Mild bilateral renal atrophy. No hydronephrosis, mass, or calculus. This is similar to previous.
[2024-12-04 03:16] LABS: African American GFR (CKD) 36 (>60 ml/min/1.73 sqM); Anion Gap 10 mmol/L; Blood Urea Nitrogen 50 mg/dL (7-17); Calcium 8.3 mg/dL (8.4-10.2); Carbon Dioxide 21 mmol/L (22-30); Chloride 100 mmol/L (98-107); Glucose 169 mg/dL (74-99); Non-African American GFR(CKD) 31 (>60 ml/min/1.73 sqM); Sodium 131 mmol/L (137-145)
[2024-12-04 03:38] LABS: Anisocytosis Moderate; Basophils % (A) 0 %; Eosinophils % (A) 0 %; HCT 27.2 % (34.0-46.0); Hypochromasia Slight; Lymphocytes # (A) 0.8 k/uL (1.0-4.8); Lymphocytes % (A) 9 %; MCH 26.3 pg (25.0-35.0); MCHC 32.1 g/dL (31.0-37.0); MCV 81.9 fL (80.0-100.0); Mean Platelet Volume 8.3; Microcytosis Slight; Monocytes # (A) 1.3 k/uL (0-1.0); Monocytes % (A) 15 %; Neutrophils # (A) 6.4 k/uL (1.3-7.7); Neutrophils % (A) 72 %; Platelet Count 228 k/uL (150-450); RBC 3.32 m/uL (3.80-5.40); RDW 20.5 % (11.5-15.5); WBC 8.8 k/uL (3.8-10.6)
[2024-12-04 03:42] LABS: HGB 8.7 gm/dL (11.4-16.0)
[2024-12-04 03:55] LABS: INR 1.1 (<1.2); Prothrombin Time 11.5 sec (10.0-12.5)
[2024-12-04 04:08] LABS: Partial Thromboplastin Time 160.5 sec (22.0-30.0)
[2024-12-04 06:17] LABS: Appearance,Urine Clear (Clear); Bacteria,Urine Rare /hpf; Bilirubin,Urine Negative (Negative); Blood,Urine Negative (Negative); Color,Urine Light Yellow; Glucose,Urine (UA) Negative (Negative); Hyaline Casts,Urine 1 /lpf (0-2); Ketones,Urine Negative (Negative); Leukocyte Esterase,Urine Moderate (Negative); Mucus,Urine Rare /hpf; Nitrite,Urine Negative (Negative); Protein,Urine Negative (Negative); RBC,Urine <1 /hpf (0-5); Specific Gravity,Urine 1.012 (1.001-1.035); Squamous Epithelial Cell,Urine 3 /hpf (0-4); Urobilinogen,Urine <2.0 mg/dL (<2.0); WBC,Urine 3 /hpf (0-5)
[2024-12-04 08:33] LABS: HCT 25.9 % (37.2-46.3); HGB 8.1 g/dL (12.0-15.0); MCH 25.8 pg (27.0-32.0); MCHC 31.3 g/dL (32.0-37.0); MCV 82.5 FL (80.0-97.0); Mean Platelet Volume 10.7 FL (9.5-12.2); NRBC Per 100 WBC 0 X 10*3/uL (0.00-0.01); Platelet Count 246 X 10*3/uL (140-440); RBC 3.14 X 10*6/uL (4.10-5.20); RDW 22.2 % (11.5-14.5); WBC 8.66 X 10*3/uL (4.50-10.00)
[2024-12-04 08:41] LABS: BUN/Creat Ratio 27.44 Ratio (12.00-20.00); Blood Urea Nitrogen 43.9 mg/dL (9.0-27.0); Calcium 8.7 mg/dL (8.7-10.3); Carbon Dioxide 21.4 mmol/L (21.6-31.8); Chloride 103 mmol/L (96-109); Glucose 127 mg/dL (70-110); Potassium 4.8 mmol/L (3.5-5.5); Sodium 136 mmol/L (135-145)
[2024-12-04 08:59] LABS: Basophils # (A) 0.02 X 10*3/uL (0.00-0.10); Basophils % (A) 0.2 %; Eosinophils # (A) 0.01 X 10*3/uL (0.04-0.35); Eosinophils % (A) 0.1 %; Lymphocytes % (A) 12.7 %; Monocytes # (A) 0.61 X 10*3/uL (0.20-1.00); Neutrophils # (A) 6.88 X 10*3/uL (1.80-7.70); Neutrophils % (A) 79.5 %
[2024-12-04] MEDS: DAPAGLIFLOZIN PROPANEDIOL 5 MG TABLET PO SCH (09:08)
[2024-12-04] MEDS: METOPROLOL SUCCINATE (ER) 25 MG TAB.ER.24H PO SCH (09:08)
--- NOTE | 2024-12-04 10:28 | P.NPCON ---
History of Present Illness - Reason for Consult acute renal failure, chronic renal failure - History of Present Illness Reason for consultation: Acute kidney injury on chronic kidney disease History of present is: Patient is a 78-year-old female seen in renal consultation for acute kidney injury on chronic kidney disease. Patient was seen and examined in emergency room. Patient has chronic kidney disease stage IIIb with baseline creatinine 1.3-1.5 secondary to nephrosclerosis. Creatinine this admission has been fairly stable at 1.6. Patient came to the hospital due to abnormal blood work. Piter nt states she had blood work done outpatient and was told to come to the hospital due to hyperkalemia. Patient denies taking any potassium supplements. She is unsure of the medication she takes. I do see lisinopril on her home medication list. Patient states she has been eating quite a few salads recently. Has been voiding. No gross hematuria or dysuria. No chest pain or shortness of breath. No edema. Denies history of diabetes or coronary artery disease. Potassium level was 6 on admission and is 4.8 today. Vital signs are stable. General: No acute distress. HEENT: Head exam is unremarkable. LUNGS: No audible rhonchi or wheezes. HEART: Rate and Rhythm are regular. ABDOMEN: Nontender. EXTREMITITES: No edema. Past Medical History Past Medical History: Chest Pain / Angina, Hyperlipidemia, Hypertension, Renal Disease Additional Past Medical History / Comment(s): covid 02/16/21, anemia requiring blood transfuions History of Any Multi-Drug Resistant Organisms: None Reported Past Surgical History: Cholecystectomy, Heart Catheterization, Hysterectomy Additional Past Surgical History / Comment(s): bladder suspension Past Anesthesia/Blood Transfusion Reactions: No Reported Reaction Past Psychological History: No Psychological Hx Reported Smoking Status: Never smoker Past Alcohol Use History: None Reported Past Drug Use History: None Reported Medications and Allergies Home Medications Medication Instructions Recorded Confirmed Type Pantoprazole [Protonix] 40 mg PO AC-BRKFST #30 tab 09/29/24 12/03/24 Rx Albuterol Sulfate [Ventolin HFA] 2 puff INHALATION RT-TID 12/03/24 12/03/24 History Atorvastatin [Lipitor] 10 mg PO DAILY 12/03/24 12/03/24 History lisinopriL [Zestril] 10 mg PO DAILY 12/03/24 12/03/24 History Allergies Allergy/AdvReac Type Severity Reaction Status Date / Time codeine Allergy Unknown Verified 12/03/24 21:23 morphine Allergy Throat Verified 12/03/24 21:23 Swelling Penicillins Allergy Swelling Verified 12/03/24 21:23 Physical Exam Vitals: Vital Signs Temp Pulse Resp BP Pulse Ox 12/04/24 09:00 59 L 20 153/77 96 12/04/24 04:00 56 L 12 116/66 96 12/04/24 00:00 68 13 93/43 96 12/03/24 22:19 79 18 118/59 93 L 12/03/24 22:00 73 18 121/51 93 L 12/03/24 21:24 71 18 76/31 95 12/03/24 21:00 89 18 117/47 94 L 12/03/24 20:49 102 H 12/03/24 20:38 111 H 12/03/24 17:01 97.7 F 66 18 96/82 98 Intake and Output 12/03/24 12/04/24 12/04/24 22:59 06:59 14:59 Intake Total 45.354 21.667 Balance 45.354 21.667 Intake: Intake, IV Titration 45.354 21.667 Amount Heparin Sod,Pork in 0.45% 45.354 21.667 NaCl 25,000 unit In 0.45 % NaCl 1 250ml.bag @ 12 UNITS/KG/HR 8.981 mls/hr IV .Q24H [facility] Rx#: [id number] Other: Weight 74.843 kg Results - Lab Results Most recent lab results Calcium 8.7 mg/dL (8.7-10.3) 12/04/24 05:34 Phosphorus 3.7 mg/dL (2.5-4.5) 12/03/24 18:15 Magnesium 1.6 mg/dL (1.6-2.3) 12/03/24 18:15 12/04/24 04:37 12/04/24 05:34 Assessment and Plan Plan: Assessment: 1. Mild acute kidney injury secondary to vasomotor nephropathy. Creatinine stable at 1.6. UA benign. 2. Chronic kidney disease stage IIIb with baseline creatinine 1.3-1.5 secondary to nephrosclerosis. 3. Hyperkalemia secondary to acute kidney injury and lisinopril. Improved. 4. Mild metabolic acidosis secondary to IV fluids. 5. Hypertension with chronic kidney disease. 6. Anemia of chronic kidney disease. Plan: Hep-Lock IV fluids. Encouraged oral intake. Continue to hold lisinopril. Add amlodipine 5 mg once daily. Check iron studies. Follow-up echocardiogram. Follow-up outpatient 1 week postdischarge. Thank you for the consultation. I will continue to follow the patient with you during her hospital stay.
[2024-12-04] MEDS: ALBUTEROL HFA INHALER INHALATION SCH (12:46)
--- NOTE | 2024-12-04 13:55 | P.CRDCN ---
History of Present Illness Consult date: 12/04/24 Reason for Consult (text): Acute chest pain, EKG changes History of present illness: This is a 78-year-old female with past medical history of hypertension, hyperlipidemia, borderline diabetes, chronic kidney disease, GERD. We have been asked to evaluate the patient for acute chest pain and EKG changes. Patient states that she has been having trouble with her blood work and was called to come into the hospital due to elevated potassium. She has also had worsening of her kidney function. Patient was given Lokelma x 1 dose, 2 L of IV fluids, regular insulin dextrose. During the hyperkalemia treatment, patient developed significant chest pain that went to her left arm. She has never had this before. Previous EKGs were reviewed and patient has never had changes on her EKG in the past. Her chest pain is now completely gone. She has ambulated in the hallway without lightheadedness or dizziness, no palpitations. She does have chronic anemia and had a workup in September of last year. 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 No history of MA and no previous cardiac catheterization. Patient has been started on a heparin drip. -EKG: Sinus rhythm with no ST changes. #2 ST depression. -Chest x-ray: No acute process -Laboratory studies: WBC 8.6, hemoglobin 8.1, platelet count 246. Initial potassium 6 now 4.8, BUN 43 creatinine 1.6, magnesium 1.6. Troponin negative x 3. -Home cardiac medications: Atorvastatin 10 mg daily, lisinopril 10 mg daily -Echocardiogram performed in 2019 reveals EF greater than 55%, LA severely dilated greater than 40 mL to, mild aortic valve sclerosis, mild mitral regurgitation, mild tricuspid regurgitation, no pulmonary hypertension. No pericardial effusion. Review Of Systems: At the time of my exam: CONSTITUTIONAL: Denies fever or chills. HEENT: Denies blurred vision, vision changes, or eye pain. Denies hemoptysis CARDIOVASCULAR: Denies chest pain. Denies orthopnea. Denies PND. Denies palpitations RESPIRATORY: Denies shortness of breath. GASTROINTESTINAL: Denies abdominal pain. Denies nausea or vomiting. HEMATOLOGIC: Denies bleeding disorders. GENITOURINARY: Denies any blood in urine. SKIN: Denies puritis. Denies rash. Physical examination: Gen: This is a 78-year-old female in no acute distress VS: reviewed HEENT: Head is atraumatic, normocephalic. Pupils equal, round. Sclerae is anicteric. NECK: Supple. No JVD. LUNGS: Clear to auscultation. No wheezes or rhonchi. No intercostal retractions. HEART: Regular rate and rhythm. No murmur. ABDOMEN: Soft No tenderness. EXTREMITIES: No pedal edema. No calf tenderness. NEUROLOGICAL: Patient is awake, alert and oriented x3. Assessment: EKG changes and chest pain during hyperkalemia treatment Acute kidney injury Chronic kidney disease Hyperkalemia Hypertension Hyperlipidemia Borderline diabetes GERD Plan: Hold lisinopril Start patient on atorvastatin 80 mg at bedtime, Farxiga 5 mg daily, and metoprolol succinate 25 mg daily Discontinue heparin drip Obtain A1c, lipid panel Obtain 2-D echocardiogram and Doppler study to assess cardiac structure and function Further recommendations to follow based upon clinical course Thank you kindly for this consultation. Nurse practitioner note has been reviewed, I agree with documented findings and plan of care. Patient was seen and examined. Past Medical History Past Medical History: Chest Pain / Angina, Hyperlipidemia, Hypertension, Renal Disease Additional Past Medical History / Comment(s): covid 02/16/21, anemia requiring blood transfuions History of Any Multi-Drug Resistant Organisms: None Reported Past Surgical History: Cholecystectomy, Heart Catheterization, Hysterectomy Additional Past Surgical History / Comment(s): bladder suspension Past Anesthesia/Blood Transfusion Reactions: No Reported Reaction Past Psychological History: No Psychological Hx Reported Smoking Status: Never smoker Past Alcohol Use History: None Reported Past Drug Use History: None Reported Medications and Allergies Home Medications Medication Instructions Recorded Confirmed Type Pantoprazole [Protonix] 40 mg PO AC-BRKFST #30 tab 09/29/24 12/03/24 Rx Albuterol Sulfate [Ventolin HFA] 2 puff INHALATION RT-TID 12/03/24 12/03/24 History Atorvastatin [Lipitor] 10 mg PO DAILY 12/03/24 12/03/24 History lisinopriL [Zestril] 10 mg PO DAILY 12/03/24 12/03/24 History Allergies Allergy/AdvReac Type Severity Reaction Status Date / Time codeine Allergy Unknown Verified 12/03/24 21:23 morphine Allergy Throat Verified 12/03/24 21:23 Swelling Penicillins Allergy Swelling Verified 12/03/24 21:23 Physical Exam Vitals: Vital Signs Temp Pulse Resp BP Pulse Ox 12/04/24 11:08 62 20 153/88 99 12/04/24 09:00 59 L 20 153/77 96 12/04/24 04:00 56 L 12 116/66 96 12/04/24 00:00 68 13 93/43 96 12/03/24 22:19 79 18 118/59 93 L 12/03/24 22:00 73 18 121/51 93 L 12/03/24 21:24 71 18 76/31 95 12/03/24 21:00 89 18 117/47 94 L 12/03/24 20:49 102 H 12/03/24 20:38 111 H 12/03/24 17:01 97.7 F 66 18 96/82 98 Intake and Output 12/03/24 12/04/24 12/04/24 22:59 06:59 14:59 Intake Total 45.354 21.667 Balance 45.354 21.667 Intake: Intake, IV Titration 45.354 21.667 Amount Heparin Sod,Pork in 0.45% 45.354 21.667 NaCl 25,000 unit In 0.45 % NaCl 1 250ml.bag @ 12 UNITS/KG/HR 8.981 mls/hr IV .Q24H [facility] Rx#: [id number] Other: Weight 74.843 kg Results 12/04/24 04:37 12/04/24 05:34 Cardiac Enzymes 12/03/24 12/04/24 12/04/24 Range/Units 18:15 02:46 05:34 AST 30 (14-36) U/L Troponin I <0.012 <0.012 (0.000-0.034) ng/mL 12/04/24 Range/Units 08:41 AST (14-36) U/L Troponin I <0.012 (0.000-0.034) ng/mL Coagulation 12/04/24 Range/Units 02:46 PT 11.5 (10.0-12.5) sec APTT 160.5 H* (22.0-30.0) sec CBC 12/03/24 12/04/24 12/04/24 Range/Units 18:15 02:46 04:37 WBC 9.2 8.8 8.66 (3.8-10.6) k/uL RBC 4.02 3.32 L 3.14 L (3.80-5.40) m/uL Hgb 10.5 L 8.7 L D 8.1 L (11.4-16.0) gm/dL Hct 32.7 L 27.2 L 25.9 L (34.0-46.0) % Plt Count 304 228 246 (150-450) k/uL Comprehensive Metabolic Panel 12/03/24 12/04/24 12/04/24 Range/Units 18:15 02:46 05:34 Sodium 132 L 131 L 136 (137-145) mmol/L Potassium 6.0 H 4.8 (3.5-5.1) mmol/L Chloride 103 100 103 (98-107) mmol/L Carbon Dioxide 18 L 21 L 21.4 L (22-30) mmol/L BUN 51 H 50 H 43.9 H (7-17) mg/dL Creatinine 1.57 H 1.61 H 1.6 H (0.52-1.04) mg/dL Glucose 103 H 169 H 127 H (74-99) mg/dL Calcium 9.8 8.3 L 8.7 (8.4-10.2) mg/dL AST 30 (14-36) U/L ALT 19 (4-34) U/L Alkaline Phosphatase 86 (38-126) U/L Total Protein 7.7 (6.3-8.2) g/dL Albumin 4.5 (3.5-5.0) g/dL Current Medications Generic Name Dose Route Start Last Admin Trade Name Freq PRN Reason Stop Dose Admin Albuterol Sulfate 2 puff 12/04/24 13:00 12/04/24 12:46 Albuterol Hfa Inhaler INHALATION 2 puff RT-TID ZOE Administration Amlodipine Besylate 5 mg 12/05/24 09:00 Amlodipine 5 Mg Tab PO DAILY ZOE Atorvastatin Calcium 80 mg 12/04/24 21:00 Atorvastatin 80 Mg Tab PO HS ZOE Dapagliflozin 5 mg 12/04/24 09:00 12/04/24 09:08 Dapagliflozin Propanediol 5 Mg Tablet PO 5 mg DAILY ZOE Administration Heparin Sodium (Porcine) 0 unit 12/03/24 21:50 Heparin Sodium 1,000 Un/Ml (10ml Vl) IV PER PROTOCOL PRN Low PTT Protocol Cefuroxime Sodium 500 mg/ 50 mls @ 100 mls/hr 12/03/24 22:00 12/04/24 11:45 Sodium Chloride IVPB 100 mls/hr Q12H ZOE Administration Protocol Heparin Sodium/Sodium Chloride 250 mls @ 8.981 mls/hr 12/03/24 22:00 12/04/24 08:43 25,000 unit/ Sodium Chloride IV 0 units/kg/hr .Q24H [facility]OE 0 mls/hr Titration Protocol 12 UNITS/KG/HR Metoprolol Succinate 25 mg 12/04/24 09:00 12/04/24 09:08 Metoprolol Succinate (Er) 25 Mg Tab.Er.24h PO 25 mg DAILY ZOE Administration Metronidazole 500 mg 12/03/24 22:00 12/04/24 06:57 Metronidazole 500 Mg Tab PO 500 mg Q8H ZOE Administration Protocol Naloxone HCl 0.2 mg 12/03/24 20:24 Naloxone 0.4 Mg/Ml 1 Ml Vial IV Q2M PRN Opioid Reversal Pantoprazole Sodium 40 mg 12/05/24 07:30 Pantoprazole 40 Mg Tablet PO AC-BRKFST ZOE Intake and Output 12/03/24 12/04/24 12/04/24 22:59 06:59 14:59 Intake Total 45.354 21.667 Balance 45.354 21.667 Intake: Intake, IV Titration 45.354 21.667 Amount Heparin Sod,Pork in 0.45% 45.354 21.667 NaCl 25,000 unit In 0.45 % NaCl 1 250ml.bag @ 12 UNITS/KG/HR 8.981 mls/hr IV .Q24H [facility] Rx#: [id number] Other: Weight 74.843 kg 12/04/24 04:37 12/04/24 05:34
[2024-12-04 15:18] VITALS: BP 172/106; PULSE 60; RESP 16; TEMP 97.6
--- NOTE | 2024-12-04 16:05 | CA ---
Transthoracic Echo Report Name: Jayde Masters Age: 78 Gender: F : 1945 Exam Date: 12/04/2024 09:31 Exam Location: [place] [facility] Ht (in): 64 Wt (lb): 165 Ordering Physician: Raven Gonzalez DO Attending/Referring Phys: [id number], Lisa Box Builder Trish Redd RDCS Procedure CPT: Indications: Abn EKG Cardiac Hx: Technical Quality: Contrast 1: Total Dose (mL): Contrast 2: Total Dose (mL): MEASUREMENTS (Male / Female) Normal Values 2D ECHO LV Diastolic Diameter PLAX 4.0 cm 4.2 - 5.9 / 3.9 - 5.3 cm LV Systolic Diameter PLAX 2.8 cm IVS Diastolic Thickness 1.3 cm 0.6 - 1.0 / 0.6 - 0.9 cm LVPW Diastolic Thickness 1.1 cm 0.6 - 1.0 / 0.6 - 0.9 cm LV Relative Wall Thickness 0.6 RV Internal Dim ED PLAX 3.4 cm LVOT Diameter 1.8 cm LV Diastolic Volume MOD BP 88.4 cm??? 67 - 155 / 56 - 104 cm??? LV Systolic Volume MOD BP 28.6 cm??? 22 - 58 / 19 - 49 cm??? LV Ejection Fraction MOD BP 67.6 % >= 55 % LV Diastolic Volume MOD 4C 80.3 cm??? LV Systolic Volume MOD 4C 30.6 cm??? LV Ejection Fraction MOD 4C 61.9 % LV Diastolic Length 4C 7.3 cm LV Systolic Length 4C 6.0 cm LV Diastolic Volume MOD 2C 86.8 cm??? LV Systolic Volume MOD 2C 26.4 cm??? LV Ejection Fraction MOD 2C 69.6 % LV Diastolic Length 2C 8.3 cm LV Systolic Length 2C 6.4 cm LA Volume 83.5 cm??? 18 - 58 / 22 - 52 cm??? LA Volume Index 44.9 cm???/m??? 16 - 28 cm???/m??? M-MODE Aortic Root Diameter MM 2.7 cm LA Systolic Diameter MM 4.6 cm LA Ao Ratio MM 1.7 DOPPLER AV Peak Velocity 145.3 cm/s AV Peak Gradient 8.4 mmHg AV Mean Velocity 101.9 cm/s AV Mean Gradient 4.6 mmHg AV Velocity Time Integral 33.4 cm MV Area PHT 3.0 cm??? Mitral E Point Velocity 70.0 cm/s Mitral A Point Velocity 94.7 cm/s Mitral E to A Ratio 0.7 MV Deceleration Time 249.2 ms MV E' Velocity 8.6 cm/s Mitral E to MV E' Ratio 8.1 TR Peak Velocity 304.4 cm/s TR Peak Gradient 37.1 mmHg FINDINGS Left Ventricle Left ventricular cavity size normal. Moderately increased left ventricular wall thickness. No obvious regional wall motion abnormalities. Left ventricular ejection fraction is estimated at 55-60 %. Grade 2 diastolic dysfunction. Right Ventricle Mild right ventricular dilatation. Mild pulmonary hypertension. Right Atrium Mild right atrial dilatation. Left Atrium Severely increased left atrial volume. Mitral Valve Structurally normal mitral valve. Mild mitral annular calcification. Moderate mitral regurgitation. Posteriorly directed mitral regurgitation jet. Aortic Valve Trileaflet aortic valve. No aortic valve stenosis or regurgitation. Aortic valve sclerosis. Tricuspid Valve Structurally normal tricuspid valve. Mild tricuspid regurgitation. Pulmonic Valve Structurally normal pulmonic valve. Trace pulmonic regurgitation. Pericardium No pericardial effusion. Aorta Normal size aortic root and proximal ascending aorta. CONCLUSIONS Indication: Abnormal ECG, dyspnea on exertion LVEF 55% No obvious regional wall motion abnormality Grade II diastolic dysfunction Moderate concentric LVH Mild RV dilatation. RVSP estimated at 40 mmHg Severe left atrial dilatation Moderate mitral regurgitation Previewed by: Dr Sinan Jensen (Electronically Signed) Final Date: 04 December 2024 16:04
[2024-12-04 16:58] LABS: Chol/HDL Ratio 1.94 Ratio; LDL Cholesterol,Calculated 71.1 mg/dL (0.0-131.0); VLDL Calculation 8.22 mg/dL (5.00-40.00)
[2024-12-04 17:04] LABS: % Iron Saturation 13.21 (12.00-45.00); Ferritin 43.6 ng/mL (10.0-291.0)
[2024-12-04] MEDS ORDERED: ATORVASTATIN 80 MG TAB PO SCH (21:00)
[2024-12-05] MEDS ORDERED: PANTOPRAZOLE 40 MG TABLET PO SCH (07:30)
[2024-12-05] MEDS ORDERED: amLODIPine 5 MG TAB PO SCH (09:00)
== END 2024-12-04 16:38 | disposition left against medical advice (07) | DRG 640 ==
LOC: EC 16:29 → 4SSUR 20:35 → OBSVTOIN 20:35 → 3SCARD 22:54 → 5NMEDONC 12-04 11:13
PROVIDERS: ADMIT Internal Medicine; ATTEND Internal Medicine
DX: E87.5 Hyperkalemia (principal); N17.0 Acute kidney failure with tubular necrosis; E87.20 Acidosis, unspecified; D63.1 Anemia in chronic kidney disease; I12.9 Hypertensive chronic kidney disease with stage 1 through stage 4 chronic kidney disease, or unspecified chronic kidney disease; N18.32 Chronic kidney disease, stage 3b; Z53.29 Procedure and treatment not carried out because of patient's decision for other reasons; E78.5 Hyperlipidemia, unspecified; K21.9 Gastro-esophageal reflux disease without esophagitis; R73.03 Prediabetes; S61.451A Open bite of right hand, initial encounter; W54.0XXA Bitten by dog, initial encounter; Z79.899 Other long term (current) drug therapy; Z90.710 Acquired absence of both cervix and uterus; Z88.5 Allergy status to narcotic agent; Z88.0 Allergy status to penicillin; Z90.49 Acquired absence of other specified parts of digestive tract; Z86.16 Personal history of COVID-19
CPT/HCPCS: 36415; 71045; 76770; 80048; 80053; 80061; 81001; 82728; 83036; 83540; 83550; 83735; 84100; 84484; 85025; 85610; 85730; 93005; 93306; 94640; 96361; 96365; 96366; 96367; 96368; 96375; 99285